=== PATIENT | female | born 1990 ===

== ENCOUNTER 2020-08-23 11:18 | Outpatient (REF) | payer MEDICARE, SELFPAY | END 2020-08-23 11:19 | disposition home or self-care (01) | LOC: HO.LAB 11:18 | PROVIDERS: PCP Internal Medicine; Visit Provider Internal Medicine | DX: Z20.828 Contact with and (suspected) exposure to other viral communicable diseases (principal) | CPT/HCPCS: C9803; U0003 ==

== ENCOUNTER 2020-09-25 12:53 | Outpatient (REF) | payer OTHER, SELFPAY | END 2020-09-25 12:54 | disposition home or self-care (01) | LOC: HO.LAB 12:53 | PROVIDERS: PCP Internal Medicine; Visit Provider Internal Medicine | DX: Z20.828 Contact with and (suspected) exposure to other viral communicable diseases (principal) | CPT/HCPCS: C9803; U0003 ==

== ENCOUNTER 2020-10-30 14:52 | Outpatient (REF) | payer OTHER, SELFPAY | END 2020-10-30 14:53 | disposition home or self-care (01) | LOC: HO.LAB 14:52 | PROVIDERS: Visit Provider Internal Medicine | DX: Z20.822 Contact with and (suspected) exposure to COVID-19 (principal) | CPT/HCPCS: 36415; C9803; U0003 ==

== ENCOUNTER 2021-01-08 12:35 | Outpatient (REF) | payer OTHER, SELFPAY | END 2021-01-08 12:36 | disposition home or self-care (01) | LOC: HO.LAB 12:35 | PROVIDERS: Visit Provider Internal Medicine | DX: Z20.822 Contact with and (suspected) exposure to COVID-19 (principal) | CPT/HCPCS: 36415; C9803; U0003; U0005 ==

== ENCOUNTER 2021-02-17 11:32 | Outpatient (REF) | payer OTHER, SELFPAY ==
[2021-02-17 12:17] LABS: COVID-19 Test Negative (Negative); IDNOW Serial# 55D5AD1C
== END 2021-02-17 11:33 | disposition home or self-care (01) ==
LOC: HO.LAB 11:32
PROVIDERS: Visit Provider Internal Medicine
DX: Z20.822 Contact with and (suspected) exposure to COVID-19 (principal)
CPT/HCPCS: 36415; 87635; C9803

== ENCOUNTER → 2021-02-27 14:34 | Outpatient (BNVA) | payer OTHER, SELFPAY | PROVIDERS: PCP Internal Medicine; Visit Provider Surgery Vascular Surgery | DX: I83.12 Varicose veins of left lower extremity with inflammation (principal) | CPT/HCPCS: 99202 ==

== ENCOUNTER 2021-03-18 13:13 | Outpatient (REF) | payer OTHER, SELFPAY ==
--- NOTE | ~2021-03-18 | US_ITS ---
EXAMINATION: US LOWER EXTREMITY VENOUS ULTRASOUND (REFLUX EXAM), BILATERAL CLINICAL INDICATION: Bilateral lower extremity varicose veins. COMPARISON: None. TECHNIQUE: Color flow triplex imaging and compression Doppler was performed to evaluate both the deep and the superficial systems bilaterally. To evaluate the superficial system, the examination was performed in the upright position. Color flow Doppler ultrasound and compression ultrasound were utilized. In addition, maneuvers were utilized to demonstrate reflux. FINDINGS: 1. DEEP VENOUS ULTRASOUND OF THE RIGHT LOWER EXTREMITY: Common Femoral Vein: Compressible, normal respiratory variation and augmented flow. Femoral Vein: Compressible, normal color flow and augmentation. Popliteal Vein: Compressible, normal augmentation. Deep Reflux: There is no evidence of reflux in the deep system in either the common femoral vein or the popliteal vein. There is no evidence of a Luke's cyst. 2. SUPERFICIAL ULTRASOUND WITH DOPPLER OF RIGHT LOWER EXTREMITY GREAT SAPHENOUS VEIN: Saphenofemoral junction/proximal thigh: 0.8 cm; Greater than 0.9 seconds of reflux. Mid thigh: 0.6 cm; No evidence of reflux. Above knee: 0.5 cm; No evidence of reflux. At knee: 0.5 cm; No evidence of reflux. Below knee: 0.4 cm; No evidence of reflux. Mid calf: 0.3 cm; Greater than 2 seconds of reflux. Ankle: 0.3 cm; Greater than 0.5 seconds of reflux. DUPLICATED GREAT SAPHENOUS VEIN: Medial, 0.3 cm; No reflux. SMALL SAPHENOUS VEIN: Saphenopopliteal junction: 0.3 cm; No evidence of reflux. Mid calf: 0.2 cm; No evidence of reflux. Distal calf: 0.3 cm; No evidence of reflux. VEIN OF GIACOMINI: None Imaged. PERFORATORS: Mid thigh, 0.3 cm; No reflux. Proximal thigh, 0.2 cm; No reflux. VARICOSITIES: Proximal thigh, 0.3 cm; No reflux. Proximal calf, 0.3 cm; No reflux. 3. DEEP VENOUS ULTRASOUND OF THE LEFT LOWER EXTREMITY: Common Femoral Vein: Compressible, normal respiratory variation and augmented flow. Femoral Vein: Compressible, normal color flow and augmentation. Popliteal Vein: Compressible, normal augmentation. Deep Reflux: There is no evidence of reflux in the deep system in either the common femoral vein or the popliteal vein. There is no evidence of a Luke's cyst. 4. SUPERFICIAL ULTRASOUND WITH DOPPLER OF LEFT LOWER EXTREMITY GREAT SAPHENOUS VEIN: Saphenofemoral junction: 0.8 cm; No evidence of reflux. Proximal thigh: 0.7 cm; No evidence of reflux. Mid thigh: 0.4 cm; No evidence of reflux. Above knee: 0.4 cm; No evidence of reflux. At knee: 0.4 cm; No evidence of reflux. Below knee: 0.4 cm; Greater than 0.4 seconds of reflux. Mid calf: 0.2 cm; No evidence of reflux. Ankle: 0.3 cm; No evidence of reflux. DUPLICATED GREAT SAPHENOUS VEIN: Medial, 0.4; No reflux. SMALL SAPHENOUS VEIN: Saphenopopliteal junction: 0.2 cm; No evidence of reflux. Mid calf: 0.2 cm; No evidence of reflux. Distal calf: 0.3 cm; No evidence of reflux. VEIN OF GIACOMINI: None Imaged. PERFORATORS: Medial thigh, 0.3 cm; No reflux. Proximal calf, 0.2 cm; No reflux. Distal calf, 0.2 cm; No reflux. VARICOSITIES: Proximal thigh, 0.3 cm; No reflux. Proximal calf, 0.2 cm; Greater than 2.9 seconds of reflux. US/US venous duplex LE BI IMPRESSION: 1. Right great saphenous venous insufficiency. 2. Left great saphenous venous insufficiency [id number] measuring up to 0.4 seconds. 3. No evidence of small saphenous venous insufficiency. 4. Bilateral lower extremity varicosities. 5. No evidence of DVT or deep reflux.
== END 2021-03-18 13:14 | disposition home or self-care (01) ==
LOC: HO.US 13:13
PROVIDERS: Visit Provider Surgery Vascular Surgery
DX: I83.12 Varicose veins of left lower extremity with inflammation (principal); I83.893 Varicose veins of bilateral lower extremities with other complications
CPT/HCPCS: 93970

== ENCOUNTER → 2021-04-08 14:23 | Outpatient (BNVA) | payer OTHER, SELFPAY | PROVIDERS: PCP Internal Medicine; Visit Provider Surgery Vascular Surgery | DX: I83.12 Varicose veins of left lower extremity with inflammation (principal) | CPT/HCPCS: 99212 ==

== ENCOUNTER 2021-07-02 14:56 | Outpatient (REF) | payer OTHER, SELFPAY | END 2021-07-02 14:57 | disposition home or self-care (01) | LOC: HO.LAB 14:56 | PROVIDERS: PCP Internal Medicine; Visit Provider Internal Medicine | DX: Z20.822 Contact with and (suspected) exposure to COVID-19 (principal) | CPT/HCPCS: C9803; U0003; U0005 ==

== ENCOUNTER 2021-07-15 11:01 | Outpatient (REF) | payer OTHER, SELFPAY | END 2021-07-15 11:02 | disposition home or self-care (01) | LOC: HO.LAB 11:01 | PROVIDERS: PCP Internal Medicine; Visit Provider Internal Medicine | DX: Z20.822 Contact with and (suspected) exposure to COVID-19 (principal) | CPT/HCPCS: C9803; U0003; U0005 ==

== ENCOUNTER 2021-07-30 15:01 | Outpatient (REF) | payer OTHER, SELFPAY ==
[2021-07-30 15:30] LABS: MANUAL DIFF FLAG NO
[2021-07-30 15:54] LABS: Basophils Percent Auto 0.2 % (0-2); Eosinophils Percent Auto 0.7 % (0-4); Hemoglobin 11.3 g/dl (12.0-16.0); Imm Gran Abs Auto 0.01 X10*3/uL (0.00-0.03); Imm Gran Pct Auto 0.2 % (0.0-0.4); Lymphocytes Absolute Auto 1.4 X10*3/uL (1.2-4.9); Lymphocytes Percent Auto 30.8 % (20-40); Mean Corpuscular HGB Conc 31.4 g/dl (31.0-35.0); Mean Corpuscular Hemoglobin 25.4 pg (27.0-33.0); Mean Corpuscular Volume 80.9 fL (80-98); Mean Platelet Volume 10.8 fL (9.4-12.3); Monocytes Absolute Auto 0.5 X10*3/uL (0.1-1.2); Monocytes Percent Auto 10.9 % (2-11); Neutrophils Absolute Auto 2.5 X10*3/uL (2.0-8.3); Neutrophils Percent Auto 57.2 % (45-73); Platelet Count 223 X10*3/uL (160-400); Red Blood Count 4.45 X10*6/uL (4.20-5.50); Red Cell Distribution Width 16.8 % (11.0-16.0); White Blood Count 4.4 X10*3/uL (4.8-10.8)
[2021-07-30 16:20] LABS: Alanine Aminotransferase 11 U/L (0-31); Alkaline Phosphatase 114 U/L (39-117); Anion Gap 10 (12-20); Aspartate Amino Transferase 18 U/L (5-31); Bilirubin Total 0.4 mg/dL (0.0-1.0); Blood Urea Nitrogen 10 mg/dL (9-16); Calcium 9.2 mg/dL (8.4-10.2); Carbon Dioxide 25 mmol/L (22-29); Chloride 106 mmol/L (96-108); Cholesterol 149 mg/dL; Estimated Glomerular Filt Rate > 60; Glucose Random 91 mg/dL (60-115); HDL Cholesterol 41 mg/dL; LDL Cholesterol Calculated 91 mg/dl; Potassium 4.5 mmol/L (3.3-5.1); Sodium 136 mmol/L (135-145); Total Protein 7.4 g/dL (6.5-8.0); Triglycerides 87 mg/dL
[2021-07-30 16:39] LABS: Syphilis Screen Nonreactive (Nonreactive)
[2021-07-30 17:34] LABS: Creatinine Urine 136.22 mg/dL; Protein/Creatinine Ratio, Ur 0.09 (<0.2); Total Protein Urine Random 12 mg/dL (<12)
[2021-07-31 02:04] LABS: CT PCR NOT DETECTED (Not Detect.); NG PCR NOT DETECTED (Not Detect.)
[2021-07-31 08:40] LABS: HIV AB/AG Nonreactive (Nonreactive); HIV Num 1 0.12 S/CO (0.00-0.99)
== END 2021-07-30 15:02 | disposition home or self-care (01) ==
LOC: HO.LAB 15:01
PROVIDERS: PCP Internal Medicine; Visit Provider Internal Medicine
DX: Z11.3 Encounter for screening for infections with a predominantly sexual mode of transmission (principal); Z11.4 Encounter for screening for human immunodeficiency virus [HIV]; M32.10 Systemic lupus erythematosus, organ or system involvement unspecified; R31.9 Hematuria, unspecified
CPT/HCPCS: 80053; 80061; 84156; 85025; 86780; 87086; 87389; 87491; 87591

== ENCOUNTER 2021-08-14 14:40 | Outpatient (REF) | payer OTHER, SELFPAY ==
[2021-08-14 15:07] LABS: COVID-19 Test Negative (Negative)
== END 2021-08-14 14:41 | disposition home or self-care (01) ==
LOC: HO.LAB 14:40
PROVIDERS: PCP Internal Medicine; Visit Provider Internal Medicine
DX: Z20.822 Contact with and (suspected) exposure to COVID-19 (principal)
CPT/HCPCS: 36415; 87635; C9803

== ENCOUNTER 2021-08-14 18:43 | Emergency (ER) | payer OTHER, SELFPAY ==
[2021-08-14 19:03] VITALS: BP 127/63; PULSE 98; RESP 17; TEMP 36.8; O2SAT 100; BMI 29.2
--- NOTE | 2021-08-14 20:01 | ED.GENADULT ---
HPI - General Adult General Chief complaint: Headache Stated complaint: headaches Time Seen by Provider: 08/14/21 19:44 Source: patient Mode of arrival: ambulatory Limitations: no limitations History of Present Illness HPI narrative: 31-year-old female who presents emergency department for evaluation headache, face pain, chills, nausea and back pain. The patient complains of a headache x3 days. She points to her forehead and maxillary sinus areas when asked to localize the pain. She states the pain is a constant, pressure-like pain which is 8/10 at its worst. The pain is worse if she bends over. She states that she has also had a runny nose. She states that she is feeling tired and fatigued. She states that she has had occasional sweats and felt hot and cold at home. She denied cough, chest pain or shortness of breath. She states she had associated nausea with no vomiting. Patient is also complaining back pain. The patient has been vaccinated for COVID-19. She received the [employer] vaccine with her 2nd vaccine given 2 weeks prior pain Related Data Home Medications Medication Instructions Recorded Confirmed acetaminophen 650 mg 650 mg PO Q12H 02/27/21 tablet,extended release (Tylenol 8 Hour) buspirone 15 mg tablet 15 mg PO BID 02/27/21 cetirizine 10 mg tablet (Zyrtec) 10 mg PO DAILY PRN 02/27/21 duloxetine 60 mg capsule,delayed 60 mg PO DAILY 02/27/21 release fluticasone propionate 50 1 spray INTRANASAL DAILY 02/27/21 mcg/actuation nasal spray,suspension hydroxychloroquine 200 mg tablet 200 mg PO DAILY 02/27/21 (Plaquenil) naproxen 500 mg tablet (Naprosyn) 500 mg PO BID 02/27/21 nifedipine 60 mg tablet,extended 60 mg PO DAILY 02/27/21 release olopatadine 0.1 % eye drops 1 drp OPHTHALMIC (EYE) BID 02/27/21 salicylic acid 13.6 % topical ea TOPICAL 02/27/21 liquid triamcinolone acetonide 0.5 % 1 appl TOPICAL BID 02/27/21 topical cream valacyclovir 1 gram tablet 1,000 mg PO TID 02/27/21 (Valtrex) zolpidem 10 mg tablet (Ambien) 10 mg PO BEDTIME PRN 02/27/21 Previous Rx's Medication Instructions Recorded amoxicillin 875 mg-potassium 1 tab PO Q12H 10 Days #20 tab 08/14/21 clavulanate 125 mg tablet (Augmentin) metoclopramide HCl 10 mg tablet 10 mg PO Q6H PRN #14 tab 08/14/21 (Reglan) Allergies Allergy/AdvReac Type Severity Reaction Status Date / Time No Known Allergies Allergy Verified 08/14/21 19:02 Review of Systems Review of Systems: Yes all other systems are reviewed and are negative [facility] Past Medical History [facility] Narrative: Past medical history: As below, patient has lupus and Raynaud's syndrome. Surgical history: None. Social history: The patient denies tobacco , drug and alcohol use. Medical History Arthritis Depression Hx of herpes zoster Surgical History Hx of vaginal surgery Social History Social History Advance Directives: No Advance Directives Information Provided: Yes Patient : No Physical Exam Vital Signs: Vital Signs: Last Vital Signs Temp 98.3 F 08/14/21 19:03 Pulse 98 08/14/21 19:03 Resp 17 08/14/21 19:03 BP 127/63 08/14/21 19:03 Pulse Ox 100 08/14/21 19:03 Body Mass Index 29.2 Const: General: cooperative and no acute distress Orientation/consciousness: oriented to person and oriented to place Limitations: no limitations HENMT: Head: Yes normal to inspection, Yes normocephalic and Yes atraumatic Ears: external ears normal General nose exam: Normal external nose present Face and sinus: Yes sinus tenderness (Bilateral maxillary, moderate) Mouth: Normal oral and palatal mucosa present Throat: Yes posterior oropharynx normal Eyes: General: appearance normal, both eyes and all related structures Pupils: Equal, round and reactive pupils present Neck: Neck: Yes normal visual inspection, Yes no lymphadenopathy, Yes trachea midline and Yes supple Chest: Chest palpation & inspection: normal inspection of the chest and normal palpation of entire chest wall Resp: Effort & Inspection: normal respiratory effort and able to speak in complete sentences Auscultation: clear to auscultation bilaterally Cardio: Rate: regular rate Rhythm: regular rhythm Heart sounds: S1 normal heart sound present, S2 normal heart sound present and no murmurs GI: Inspection: Yes normal to inspection Palpation (GI): Soft to palpation, nontender and no guarding Auscultation: normal bowel sounds : General: Yes no CVA tenderness Back/Spine/Pelvis: Back: no CVA tenderness Skin: General skin exam: no rashes or lesions noted Neuro: General: oriented to person and oriented to place Cranial nerves: Yes CN's II-XII intact bilaterally and Yes Equal, round and reactive pupils present Cognition (Neuro): normal cognition Motor exam (neuro): 5/5 motor strength present throughout Extrem: General: Yes normal to inspection Psych: Appearance: grossly normal Speech and movement: Normal speech and movement present Affect: normal affect Attitude: cooperative Thought process: Normal thought process present Thought content: Normal thought content present Course Course Course Narrative: 31-year-old female who presents emergency department for evaluation of 3 days frontal and facial pain/headache, rhinorrhea, fatigue, sweats, feeling hot and cold and back pain. Vital signs were normal. Examination did reveal maxillary sinus tenderness bilaterally otherwise was unremarkable. COVID-19 test was negative. I did discuss possible false negative COVID testing with the patient. This time however think the patient has acute sinusitis is the cause her pain. Her headache was treated with Reglan 10 mg orally, Benadryl 50 mg orally and Tylenol 975 mg orally. Patient was started on this migraine regimen and also started on Augmentin 875 twice a day for 10 days. She was given her 1st dose of Augmentin here in the emergency department. Patient was discharged home with printed and verbal instructions. Discharge Plan Discharge Clinical Impression: Sinusitis Patient Disposition: Home, Self-Care Instructions: Sinusitis (ED), Migraine Headache (ED) Additional Instructions: Presentation consistent with bilateral maxillary sinusitis Take Augmentin 875/125, 1 pill every 12 hours for 10 days. Your symptoms are consistent with a a sinus infection which is causing a migraine like headache I want you to take the following 3 medications together every 6 hours as needed for headache, nausea or vomiting. Reglan (metoclopramide) in 10 mg, 1 pill Benadryl 25 mg, 2 pills Excedrin migraine, 2 pills. After you take these medications, lie down in a dark quiet room and try to fall asleep. These medications will make you sleepy, do not drive or work after taking these medications. Follow-up with your doctor in 2 days. Please return to the emergency department if your symptoms get worse or if you develop any symptoms that are concerning to you. Prescriptions: New metoclopramide HCl [Reglan] 10 mg tablet 10 mg PO Q6H PRN (Reason: nausea and vomiting) Qty: 14 RF: 0 amoxicillin-pot clavulanate [Augmentin] 875-125 mg tablet 1 tab PO Q12H 10 Days Qty: 20 RF: 0
[2021-08-14] MEDS: Amoxicillin/Potassium Clav 875 MG TABLET PO (20:15)
[2021-08-14] MEDS: Acetaminophen 325 MG TABLET 975 MG PO (20:15)
[2021-08-14] MEDS: diphenhydrAMINE HCL 50 MG/ML VIAL IVPUSH (20:19)
[2021-08-14] MEDS: Metoclopramide HCl 10 MG/2 ML VIAL IVPUSH (20:19)
== END 2021-08-14 20:29 | disposition home or self-care (01) ==
PROVIDERS: Emergency Provider Emergency Medicine Emergency Medical Services; PCP Internal Medicine
DX: J32.9 Chronic sinusitis, unspecified (principal); R51.9 Headache, unspecified; Z79.899 Other long term (current) drug therapy
CPT/HCPCS: 96374; 96375; 99283; 99284; J1200; J2765

== ENCOUNTER 2021-08-17 17:15 | Emergency (ER) | payer OTHER, SELFPAY ==
[2021-08-17 17:19] VITALS: BP 145/91; PULSE 120; RESP 18; TEMP 36.9; O2SAT 99; BMI 29.2
[2021-08-17 18:33] LABS: Influenza A PCR NEGATIVE (Negative); Influenza B PCR NEGATIVE (Negative); Resp Syncy Virus RNA Qual PCR NEGATIVE (Negative); SARS COV2 PCR INHOUSE NEGATIVE (Negative)
[2021-08-17 20:31] VITALS: BP 128/85; PULSE 104; RESP 18; TEMP 37.6; O2SAT 97
--- NOTE | 2021-08-17 21:34 | ED_ITS ---
HPI - Back Pain/Injury General Chief Complaint: Back Pain/Injury Stated Complaint: body aches Time Seen by Provider: 08/17/21 21:34 Source: patient Mode of arrival: ambulatory Limitations: no limitations History of Present Illness HPI Narrative: Patient complaining of upper back pain headache for the last few weeks off and on most of fibromyalgia patient does have multiple complaints history of anxiety and depression Related Data Home Medications Medication Instructions Recorded Confirmed acetaminophen 650 mg 650 mg PO Q12H 02/27/21 tablet,extended release (Tylenol 8 Hour) buspirone 15 mg tablet 15 mg PO BID 02/27/21 cetirizine 10 mg tablet (Zyrtec) 10 mg PO DAILY PRN 02/27/21 duloxetine 60 mg capsule,delayed 60 mg PO DAILY 02/27/21 release fluticasone propionate 50 1 spray INTRANASAL DAILY 02/27/21 mcg/actuation nasal spray,suspension hydroxychloroquine 200 mg tablet 200 mg PO DAILY 02/27/21 (Plaquenil) naproxen 500 mg tablet (Naprosyn) 500 mg PO BID 02/27/21 nifedipine 60 mg tablet,extended 60 mg PO DAILY 02/27/21 release olopatadine 0.1 % eye drops 1 drp OPHTHALMIC (EYE) BID 02/27/21 salicylic acid 13.6 % topical ea TOPICAL 02/27/21 liquid triamcinolone acetonide 0.5 % 1 appl TOPICAL BID 02/27/21 topical cream valacyclovir 1 gram tablet 1,000 mg PO TID 02/27/21 (Valtrex) zolpidem 10 mg tablet (Ambien) 10 mg PO BEDTIME PRN 02/27/21 Previous Rx's Medication Instructions Recorded amoxicillin 875 mg-potassium 1 tab PO Q12H 10 Days #20 tab 08/14/21 clavulanate 125 mg tablet (Augmentin) metoclopramide HCl 10 mg tablet 10 mg PO Q6H PRN #14 tab 08/14/21 (Reglan) [id number] 1 cap PO Q6H PRN #20 cap 08/17/21 50 mg-300 mg-40 mg capsule (Fioricet) tramadol 50 mg tablet 50 mg PO Q6H PRN #20 tab 08/17/21 Allergies Allergy/AdvReac Type Severity Reaction Status Date / Time No Known Allergies Allergy Verified 08/17/21 21:28 Review of Systems Review of Systems: Yes all other systems are reviewed and are negative [facility] Past Medical History Medical History Arthritis Depression Hx of herpes zoster Surgical History Hx of vaginal surgery Social History Social History Advance Directives: No Advance Directives Information Provided: No Patient : No Physical Exam Vital Signs: Vital Signs: Last Vital Signs Temp 99.7 F 08/17/21 20:31 Pulse 104 H 08/17/21 20:31 Resp 18 08/17/21 20:31 BP 128/85 08/17/21 20:31 Pulse Ox 97 08/17/21 20:31 Body Mass Index 29.2 Appearance: Alert. Oriented X3. No acute distress. Eyes: No pallor or icterus ENT: Pharynx normal. Oral Mucosa moist Neck: Normal inspection. Neck supple. Diffuse muscular tenderness and upper back area CVS: Normal heart rate and rhythm. Pulses normal. Respiratory: No respiratory distress. Equal air entry bilateral, no wheezing/rales/rhonchi Abdomen: Soft and nontender. Bowel sounds are present, no mass palpable, no CVA tenderness Skin: Skin warm and dry. Normal skin color. Normal skin turgor. Extremities: No lower extremity edema. No calf tenderness Neuro: Oriented X 3. No motor deficit. No sensory deficit.No cerebellar signs , cranial nerves II-XII intact MDM - Back Pain/Injury MDM Narrative Medical decision making narrative: Patient with multiple complaints likely fibromyalgia with anxiety and depression discharge patient on pain medication Lab Data Attestation: I reviewed the patient's lab results. Labs: Lab Results 08/17/21 Range/Units 17:31 Influenza Type A (PCR) NEGATIVE (Negative) Influenza Type B (PCR) NEGATIVE (Negative) RSV RNA Qual (PCR) NEGATIVE (Negative) SARS-CoV-2 RNA (RT-PCR) NEGATIVE (Negative) Discharge Plan Discharge Clinical Impression: Musculoskeletal back pain, Migraine Patient Disposition: Home, Self-Care Instructions: Migraine Headache (ED), Fibromyalgia (ED) Additional Instructions: Rest at home Take medication for pain as prescribed You might have fibromyalgia Follow-up with PCP as needed Prescriptions: New tramadol 50 mg tablet 50 mg PO Q6H PRN (Reason: pain) Qty: 20 RF: 0 [id number]-vsdj [Fioricet] 50-300-40 mg capsule 1 cap PO Q6H PRN (Reason: headache) Qty: 20 RF: 0 No Action metoclopramide HCl [Reglan] 10 mg tablet 10 mg PO Q6H PRN (Reason: nausea and vomiting) Qty: 14 RF: 0 amoxicillin-pot clavulanate [Augmentin] 875-125 mg tablet 1 tab PO Q12H 10 Days Qty: 20 RF: 0 Interventions: ED Discharge Assessment Last Done: 08/17/21 22:23 Discharge Date/Time: 08/17/21 22:23
[2021-08-17] MEDS: traMADoL HCL 50 MG TABLET PO (22:19)
[2021-08-17] MEDS: Butalb/Acetamin/Caff 50/325/40 TABLET 1 TAB PO (22:19)
== END 2021-08-17 22:23 | disposition home or self-care (01) ==
PROVIDERS: Emergency Provider Internal Medicine
DX: M79.10 Myalgia, unspecified site (principal); G43.909 Migraine, unspecified, not intractable, without status migrainosus; Z20.822 Contact with and (suspected) exposure to COVID-19
CPT/HCPCS: 0241U; 36415; 99284

== ENCOUNTER 2021-09-29 13:41 | Outpatient (REF) | payer OTHER, SELFPAY ==
[2021-09-29 15:14] LABS: COVID-19 Test Negative (Negative); IDNOW Serial# 16C4AD1C
== END 2021-09-29 13:42 | disposition home or self-care (01) ==
LOC: HO.LAB 13:41
PROVIDERS: Visit Provider Internal Medicine
DX: Z20.822 Contact with and (suspected) exposure to COVID-19 (principal)
CPT/HCPCS: 36415; 87635; C9803

== ENCOUNTER 2021-10-14 08:57 | Outpatient (REF) | payer OTHER, SELFPAY | END 2021-10-14 08:58 | disposition home or self-care (01) | LOC: HO.LAB 08:57 | PROVIDERS: Visit Provider Internal Medicine | DX: Z20.822 Contact with and (suspected) exposure to COVID-19 (principal) | CPT/HCPCS: C9803; U0003; U0005 ==

== ENCOUNTER 2022-01-22 12:34 | Outpatient (REF) | payer OTHER, SELFPAY ==
[2022-01-22 13:04] LABS: COVID-19 Test Negative (Negative)
== END 2022-01-22 12:35 | disposition home or self-care (01) ==
LOC: HO.LAB 12:34
PROVIDERS: Visit Provider Internal Medicine
DX: Z20.822 Contact with and (suspected) exposure to COVID-19 (principal)
CPT/HCPCS: 87635; C9803

== ENCOUNTER 2023-03-03 15:37 | Outpatient (REF) | payer OTHER, SELFPAY ==
[2023-03-03 15:58] LABS: MANUAL DIFF FLAG NO
[2023-03-03 16:09] LABS: Basophils Percent Auto 0.3 % (0-2); Eosinophils Percent Auto 0.6 % (0-4); Hematocrit 37.2 % (37.0-47.0); Hemoglobin 11.4 g/dl (12.0-16.0); Lymphocytes Absolute Auto 1.3 X10*3/uL (1.2-4.9); Lymphocytes Percent Auto 35.4 % (20-40); Mean Corpuscular HGB Conc 30.6 g/dl (31.0-35.0); Mean Corpuscular Hemoglobin 24.6 pg (27.0-33.0); Mean Corpuscular Volume 80.3 fL (80.0-98.0); Mean Platelet Volume 9.9 fL (9.4-12.3); Monocytes Absolute Auto 0.3 X10*3/uL (0.1-1.2); Monocytes Percent Auto 9.5 % (2-11); Neutrophils Percent Auto 54.2 % (45-73); Platelet Count 254 X10*3/uL (160-400); Red Blood Count 4.63 X10*6/uL (4.20-5.50); White Blood Count 3.6 X10*3/uL (4.8-10.8)
[2023-03-03 16:47] LABS: Albumin Level 4.1 g/dL (3.5-5.0); C Reactive Protein 0.25 mg/dL (< or = 0.50)
[2023-03-03 16:56] LABS: Alanine Aminotransferase 19 U/L (0-31); Albumin Level 4.2 g/dL (3.5-5.0); Alkaline Phosphatase 111 U/L (39-117); Anion Gap 11 (12-20); Aspartate Amino Transferase 28 U/L (5-31); Bilirubin Total 0.7 mg/dL (0.0-1.0); Blood Urea Nitrogen 9 mg/dL (9-16); Calcium 9.3 mg/dL (8.4-10.2); Carbon Dioxide 24 mmol/L (22-29); Chloride 110 mmol/L (96-108); Cholesterol 147 mg/dL; Estimated Glomerular Filt Rate > 60; Glucose Random 83 mg/dL (60-115); HDL Cholesterol 46 mg/dL; LDL Cholesterol Calculated 91 mg/dl; Potassium 4.3 mmol/L (3.3-5.1); Sodium 141 mmol/L (135-145); Total Protein 7.6 g/dL (6.5-8.0); Triglycerides 51 mg/dL
[2023-03-03 17:12] LABS: Thyroid Stimulating Hormone 0.97 uIU/mL (0.32-4.0)
[2023-03-03 17:28] LABS: Erythrocyte Sedimentation Rate 25 MM/HR (0-20)
[2023-03-03 17:31] LABS: Appearance Urine Clear; Color Urine Yellow; Glucose Urine UA Negative (Negative); Leukocyte Esterase Urine Negative (Negative); Nitrite Urine Negative (Negative); Urine Blood Negative (Negative); Urine Ketones 15 mg/dL (Negative); Urine Protein Trace mg/dL (Neg-Trace)
[2023-03-03 17:34] LABS: Bacteria Urine 1+ (None Seen); Hyaline Casts Urine 0-2 /LPF (0-2); RBC Urine 0-2 /HPF (0-2); WBC Urine 0-5 /HPF (0-5)
[2023-03-03 18:13] LABS: Creatinine Urine 166.26 mg/dL; Microalbum/Creatinine Ratio Ur 13.2 ug/mg cr
[2023-03-06 02:38] LABS: Complement C3 126 mg/dL (83-193)
[2023-03-07 07:23] LABS: Anti DNA DS Antibody 1 IU/mL
== END 2023-03-03 15:38 | disposition home or self-care (01) ==
LOC: HO.LAB 15:37
PROVIDERS: Absent Provider Internal Medicine; PCP Internal Medicine; Visit Provider Internal Medicine
DX: Z79.899 Other long term (current) drug therapy (principal)
CPT/HCPCS: 36415; 80053; 80061; 81001; 82040; 82043; 84443; 85025; 85652; 86140; 86160; 86225

== ENCOUNTER 2023-05-19 15:00 | Outpatient (RCR) | payer OTHER, SELFPAY ==
--- NOTE | 2023-04-30 15:19 | MHC.PT.EP ---
[facility] [place] Office [place] [facility] [place] Office [address] Nelli Alves [address] [phone] F: [phone] F: [phone] F: [phone] F: [phone] Physical Therapy Plan of Care Date of Evaluation: Date of Surgery: Diagnosis: Back and joint pain (MD Dx) Assessment: Patient is a pleasant 33 y.o. female who is referred to PT by Dr Fabiana Mercer MD, with Dx of back and joint pain (secondary to lupus). Patient impairments include chronic pain, limited ROM, weakness, poor posture. Patient current functional limitations are lifting, prolonged sitting, standing, walking, stair use (does not have at home). Patient will benefit from skilled PT to address aforementioned impairments and functional limitations to to preserve current capabilities and prevent deterioration of condition. Frequency and Duration: The patient will be seen 1-2x/week for 4 weeks Short Term Goals: 2 weeks Patient demonstrates consistency and independence with HEP to self manage chronic symptoms. Manufacturer Representative Goals: 4 weeks Patient presents with increased bilateral hip flexion 4+/5 to be able to perform sit to stand without pain/difficulty. Patient presents with increased bilateral knee extension 4+/5 to be able to use reciprocal stairs in community. Treatment Plan: Modalities to reduce pain, spasms and effusion. Manual therapy to restore motion and function. Therapeutic exercise to improve strength and flexibility. Neuromuscular re-education for posture and balance. Therapeutic activities to return to functional activities of daily living. Electronically signed by: Дмитрий Piedra, PT, DPT Please sign and return to therapist. Thank you for your referral.
--- NOTE | 2023-07-27 12:22 | MHC.PT.DC ---
[facility] [place] [facility] [place] [facility] [place] [facility] [address] Nelli Alves [address] [phone] F: [phone] F: [phone] F: [phone] F: [phone] Physical Therapy Discharge Report Diagnosis: Back and joint pain ( Dx) Date of Surgery: Date of Evaluation: 04/29/23 Date of Discharge: 07/27/23 Treatments to Date: 3 Cancellations to Date: 4 No Shows to Date: 0 Discharge Status: Independent with HEP Patient Elected to Stop Discharge Summary: Patient was seen for 3 PT sessions, cancelled 4 and did not make any more [facility]UP appointments after cancelled visits. She has an independent HEP. Difficulty determining effectivness of PT interventions on patient conditioin due to limited visits. She is therefore discharged from PT at this time. Electronically signed by: Дмитрий Piedra, PT, DPT Please sign and return to therapist. Thank you for your referral.
== END 2023-07-27 12:22 | disposition home or self-care (01) ==
LOC: HO.PT 15:00
PROVIDERS: PCP Internal Medicine; Visit Provider Internal Medicine
DX: M54.50 Low back pain, unspecified (principal)
CPT/HCPCS: 97110; 97140; 97162; 97535

== ENCOUNTER 2023-08-04 13:36 | Outpatient (REF) | payer OTHER, SELFPAY ==
--- NOTE | ~2023-08-04 | US_ITS ---
EXAMINATION: US VENOUS ULTRASOUND WITH DOPPLER LOWER EXTREMITY, RIGHT CLINICAL INFORMATION: Right lower extremity edema COMPARISON: Bilateral lower extremity DVT study 03/18/2021 TECHNIQUE: Ultrasound of the deep veins is performed from the hip to the calf with compression sonography and color and pulse Doppler assessment. Spectral analysis with color-flow imaging is performed. FINDINGS: There is normal venous compression and respiratory variation and augmented flow. The visualized common femoral vein, superficial femoral vein, profunda femoral vein, popliteal vein, and the trifurcation region shows no evidence of deep venous thrombosis. There is no significant popliteal fossa cyst. The contralateral left common femoral vein appears normal. If the patient's symptoms persist, followup ultrasound in 5 days 7 days might be of value to exclude proximal propagation from a non-visualized calf vein. US/US venous duplex LE RT IMPRESSION: No DVT demonstrated in the right lower extremity.
[2023-08-04 13:59] LABS: MANUAL DIFF FLAG NO
[2023-08-04 14:20] LABS: Basophils Percent Auto 0.2 % (0-2); Eosinophils Percent Auto 0.8 % (0-4); Hematocrit 34.2 % (37.0-47.0); Hemoglobin 10.7 g/dl (12.0-16.0); Imm Gran Abs Auto 0.01 X10*3/uL (0.00-0.03); Imm Gran Pct Auto 0.2 % (0.0-0.4); Lymphocytes Absolute Auto 1.4 X10*3/uL (1.2-4.9); Lymphocytes Percent Auto 27.5 % (20-40); Mean Corpuscular HGB Conc 31.3 g/dl (31.0-35.0); Mean Corpuscular Hemoglobin 24.8 pg (27.0-33.0); Mean Corpuscular Volume 79.2 fL (80.0-98.0); Mean Platelet Volume 9.3 fL (9.4-12.3); Monocytes Absolute Auto 0.7 X10*3/uL (0.1-1.2); Neutrophils Absolute Auto 2.9 x10*3/uL (2.0-8.3); Neutrophils Percent Auto 58.3 % (45-73); Platelet Count 288 X10*3/uL (160-400); Red Blood Count 4.32 X10*6/uL (4.20-5.50); Red Cell Distribution Width 16.9 % (11.0-16.0)
[2023-08-04 14:47] LABS: D Dimer High Sensitivity < 150 NG/ML
[2023-08-04 15:30] LABS: Creatinine Urine 99.85 mg/dL; Protein/Creatinine Ratio, Ur 0.09 (<0.2); Total Protein Urine Random 9 mg/dL (<12)
[2023-08-04 15:34] LABS: Alanine Aminotransferase 22 U/L (0-31); Albumin Level 3.8 g/dL (3.5-5.0); Alkaline Phosphatase 131 U/L (39-117); Anion Gap 11 (12-20); Aspartate Amino Transferase 33 U/L (5-31); Bilirubin Total 0.3 mg/dL (0.0-1.0); Blood Urea Nitrogen 12 mg/dL (9-16); Calcium 9.1 mg/dL (8.4-10.2); Carbon Dioxide 22 mmol/L (22-29); Chloride 110 mmol/L (96-108); Cholesterol 163 mg/dL (<200); Estimated Glomerular Filt Rate > 60; Glucose Random 80 mg/dL (60-115); HDL Cholesterol 50 mg/dL (>40); LDL Cholesterol Calculated 92 mg/dL (<100); Potassium 4.3 mmol/L (3.3-5.1); Sodium 139 mmol/L (135-145); Total Protein 7.6 g/dL (6.5-8.0); Triglycerides 108 mg/dL (<150)
== END 2023-08-04 13:37 | disposition home or self-care (01) ==
LOC: HO.XRAY 13:36
PROVIDERS: PCP Internal Medicine; Visit Provider Internal Medicine
DX: R60.0 Localized edema (principal); M32.10 Systemic lupus erythematosus, organ or system involvement unspecified; L24.5 Irritant contact dermatitis due to other chemical products; E78.00 Pure hypercholesterolemia, unspecified
CPT/HCPCS: 36415; 80053; 80061; 82570; 84156; 85025; 85379; 93971

== ENCOUNTER 2024-03-31 11:37 | Emergency (ER) | payer OTHER, SELFPAY ==
--- NOTE | ~2024-03-31 | CT_ITS ---
EXAMINATION: CT ABDOMEN AND PELVIS WITHOUT CONTRAST CLINICAL INFORMATION: Hematuria COMPARISON: CT abdomen and pelvis 07/04/2015 TECHNIQUE: Multidetector volumetric imaging was performed from the superior aspect of the liver through the pubic symphysis. Sagittal and coronal reformatted images were obtained on the technologist's workstation. This CT examination was performed using dose optimization techniques as appropriate, variously including the following: *Automated exposure control *Adjustment of mA and/or kV according to patient size (this includes techniques or standardized protocols for targeted exams where dose is matched to indication/reason for exam; i.e. extremities or head) *Use of iterative reconstruction technique DLP: 764 mGy-cm FINDINGS: LUNG BASES: Unremarkable. ABDOMINAL AND PELVIC WALL: Tiny fat-containing umbilical hernia. LIVER AND BILIARY TREE: Hypoattenuating hepatic parenchyma compatible with hepatic steatosis. GALLBLADDER: Unremarkable. PANCREAS: Unremarkable. SPLEEN: Unremarkable. ADRENAL GLANDS: Unremarkable. KIDNEYS AND URETERS: Punctate nonobstructing bilateral renal stones similar to prior. No hydronephrosis or obstructive ureterolithiasis. GASTROINTESTINAL TRACT: Small hiatal hernia. Colonic diverticulosis without evidence of diverticulitis. Appendicoliths in an otherwise normal appendix. VASCULAR: Unremarkable. LYMPH NODES/PERITONEUM: Mildly enlarged bilateral iliac chain lymph nodes measuring up to 1.3 cm short axis in the right external iliac chain, 2:64, previously 1.2 cm similar to 2015. FREE FLUID: None. BLADDER: Unremarkable. PELVIC VISCERA: Unremarkable. OSSEOUS STRUCTURES: Unremarkable. CT/CT abdomen pelvis wo IV con IMPRESSION: 1. Punctate nonobstructing bilateral renal stones similar to prior. No hydronephrosis or obstructive ureterolithiasis. 2. Mildly enlarged bilateral iliac chain lymph nodes measuring up to 1.3 cm short axis in the right external iliac chain similar to 2015 though may reflect some underlying chronic low-grade lymphoproliferative process, consider correlation with tissue sampling of the dominant external iliac chain node if warranted clinically. 3. Hepatic steatosis.
[2024-03-31 11:50] VITALS: BP 135/76; PULSE 96; RESP 16; TEMP 36.9; O2SAT 100; BMI 36.3
--- NOTE | 2024-03-31 11:53 | ED.FEMALEGU ---
HPI - Female Genitourinary General Chief complaint: Urogenital-Female Stated complaint: KidneyStones Time Seen by Provider: 03/31/24 14:47 Source: patient Mode of arrival: ambulatory Limitations: no limitations History of Present Illness ED Provider: ludmila KITCHEN Narrative: Patient is a 34-year-old female with history of kidney stones presenting to the ED with complaint of hematuria and lower abdominal pain. States that she had her period last week, which typically lasts 4-5 days. After her period ended, she continued to notice pink on the toilet paper after urinating. She initially attributed it to her period. Denies any vaginal bleeding otherwise. Today noted blood in the toilet after urinating and complains of mild lower back pain radiating around to lower abdomen. Denies flank pain, denies fevers. Denies any nausea or vomiting. Denies concern for STIs or abnormal vaginal discharge. MD elicited complaint: other (hematuria) Pertinent past history: other (kidney stones) Onset (ago): day(s) Location of symptoms: suprapubic Severity: mild Quality of pain: aching Vaginal discharge: none Vaginal bleeding: none Urinary symptoms: Hematuria Associated symptoms: denies other symptoms Treatment prior to arrival: none Sexual activity: Yes Patient : No Related Data Home Medications ?Medication ?Instructions ?Recorded ?Confirmed acetaminophen 650 mg 650 mg PO Q12H 02/27/21 tablet,extended release (Tylenol 8 Hour) buspirone 15 mg tablet 15 mg PO BID 02/27/21 cetirizine 10 mg tablet (Zyrtec) 10 mg PO DAILY PRN 02/27/21 duloxetine 60 mg capsule,delayed 60 mg PO DAILY 02/27/21 release fluticasone propionate 50 1 spray intranasal DAILY 02/27/21 mcg/actuation nasal spray,suspension hydroxychloroquine 200 mg tablet 200 mg PO DAILY 02/27/21 (Plaquenil) naproxen 500 mg tablet (Naprosyn) 500 mg PO BID 02/27/21 nifedipine 60 mg tablet,extended 60 mg PO DAILY 02/27/21 release olopatadine 0.1 % eye drops 1 drp ophthalmic (eye) BID 02/27/21 salicylic acid 13.6 % topical ea topical 02/27/21 liquid triamcinolone acetonide 0.5 % 1 appl topical BID 05/13/21 topical cream valacyclovir 1 gram tablet 1,000 mg PO TID 02/27/21 (Valtrex) zolpidem 10 mg tablet (Ambien) 10 mg PO BEDTIME PRN 02/27/21 Previous Rx's ?Medication ?Instructions ?Recorded amoxicillin 875 mg-potassium 1 tab PO Q12H 10 days #20 tabs 08/14/21 clavulanate 125 mg tablet (Augmentin) metoclopramide HCl 10 mg tablet 10 mg PO Q6H PRN nausea and 08/14/21 (Reglan) vomiting #14 tabs vbsqmzoxty-leppbfdccdkyb-eubxaquf 1 cap PO Q6H PRN headache #20 caps 08/17/21 50 mg-300 mg-40 mg capsule (Fioricet) tramadol 50 mg tablet 50 mg PO Q6H PRN pain #20 tabs 08/17/21 naproxen 500 mg tablet 500 mg PO Q8-12H PRN pain (scale 03/31/24 score 4-6) #20 tabs prednisone 20 mg tablet 40 mg (2 x 20 mg) PO DAILY 5 days 03/31/24 #10 tabs Allergies Allergy/AdvReac Type Severity Reaction Status Date / Time No Known Allergies Allergy Verified 03/31/24 11:54 Review of Systems Review of Systems: As per HPI. Yes all other systems are reviewed and are negative Constitutional: Constitutional: Reports as per HPI [facility] Past Medical History Medical History Arthritis Depression Hx of herpes zoster Surgical History Hx of vaginal surgery Social History Social History Advance Directives: No Advance Directives Information Provided: No Patient : No Physical Exam Vital Signs: Vital Signs: Last Vital Signs Temp 97.9 F 03/31/24 19:53 Pulse 90 03/31/24 19:53 Resp 18 03/31/24 19:53 BP 138/76 03/31/24 19:53 Pulse Ox 99 03/31/24 19:53 O2 Del Method Room Air 03/31/24 19:53 BMI result Body Mass Index 36.3 Vital signs have been reviewed and appear to be correct. Blood pressure normal. Heart rate normal. Respiratory rate normal. Temperature normal. Oxygen saturation normal. Const: General: cooperative, healthy appearing and no acute distress Orientation/consciousness: oriented to person, oriented to place, oriented to time and patient oriented x3 Limitations: no limitations HEENT: Head: Yes normocephalic and Yes atraumatic Ears: external ears normal General nose exam: Normal external nose present Face and sinus: Yes face symmetric Mouth: oropharynx normal and moist mucous membranes Throat: Yes uvula midline Eyes: Pupils: Equal, round and reactive pupils present Neck: Neck: Yes normal visual inspection and Yes supple Resp: Effort & Inspection: normal respiratory effort and able to speak in complete sentences Auscultation: clear to auscultation bilaterally Cardio: Rate: regular rate Rhythm: regular rhythm Heart sounds: S1 normal heart sound present and S2 normal heart sound present GI: Palpation (GI): Soft to palpation, Tenderness to palpation present (GI) suprapubicly, no guarding and No Rebound tenderness present Auscultation: normoactive bowel sounds : General: Yes no CVA tenderness Back/Spine/Pelvis: Back: no CVA tenderness Thoracic/Lumbar Spine: paraspinal muscle tenderness bilaterally in the upper lumbar Skin: General skin exam: elasticity normal and turgor normal Neuro: General: oriented to person, oriented to place, oriented to time, patient oriented x3, moves all extremities, no focal motor deficits and CN's II-XI intact bilaterally Cranial nerves: Yes Equal, round and reactive pupils present Cognition (Neuro): normal cognition Extrem: General: Yes full ROM, Yes no pedal edema and Yes no calf tenderness Psych: Mental Status: mental status grossly normal Affect: normal affect Thought process: Normal thought process present Course Course Course Narrative: This is an RME performed by Jed Pavon CNP: Additional HPI, ROS, PE not included below will be deferred to primary provider. Patient is a 34 old female who presents emergency department for evaluation. She reports 5 days of hematuria, urinary frequency diffuse abdominal cramping, intermittent lower back pain. Denies this to be vaginal bleeding or rectal bleeding, blood is noted in the toilet and toilet tissue after wiping. Reports a history of kidney stones which have not required procedures in the past. She reports LMP 03/20 - 03/25 Plan: Labs, urinalysis, hCG Reevaluation(s) Reevaluation #1: I received patient in sign-out from Azra MATUTE pending CT scan. > I reviewed all investigations prior to my assumption of care. She does not have leukocytosis or left shift. Chronic, stable anemia when compared to priors. H&H 36.1. No concern for acute bleeding. Chemistry without acute electrolyte abnormality requiring intervention. Urine with small amount of leukocyte esterase, 6-10 WBCs, 3-5 squamous epithelial cells, 0-2 urine RBCs and no bacteria. There is no concern for urinary tract infection. Urine is also negative for blood and pregnnacy. CT scan abdomen/pelvis shows punctate, nonobstructing bilateral renal stones similar to priors without evidence of hydronephrosis or obstructive ureterolithiasis. It is possible that patient is passing these punctate stones. She only complains of mild discomfort at present which has been treated appropriately with Toradol. I discussed these findings with patient. Will send prednisone and naproxen to pharmacy for treatment. Advised to increase oral hydration. > CT scan also showing incidental findings of mildly enlarged bilateral iliac chain lymph nodes measuring up to 1.3 cm short axis in the right external iliac chain similar to 2015 though may reflect some underlying chronic low-grade lymphoproliferative process. Recommending correlation with tissue sampling. I did discuss these results with patient. I am unable to palpate any iliac chain lymph nodes. I advised that she follow-up with a general surgeon regarding these findings and she verbalizes understanding. Referral given. > at this time I feel patient is safe for discharge home and she is agreeable with this. - Elizabeth Bianchi PA-C Time: 20:17 Medications Administered Discontinued Medications Generic Name Dose Route Start Last Admin Trade Name Dion PRN Reason Stop Dose Admin Ketorolac Tromethamine 30 mg 03/31/24 19:40 03/31/24 19:51 Ketorolac Tromethamine 30 Mg/Ml Vial IM 03/31/24 19:41 30 mg ONCE ONE Administration Medical Decision Making Medical Decision Making MDM Narrative: Patient is a 34-year-old female with history of kidney stones presenting to the ED with complaint of hematuria and lower abdominal pain. On exam patient is awake, A+Ox3, VS WNL, afebrile, normal neurological exam without focal deficits, physical exam findings as above. Given reported symptoms and physical exam findings, initial differential includes UTI, renal or ureteral calculi, menstruation. Labs notable for no leukocytosis, slight anemia, no evidence of DELMIS. Urinalysis notable for 1+ leukocytes, 6-10 WBCs, negative . Patient signed out to ARRON Johnson pending CT A/P Differential Diagnosis Differential Diagnoses: The differential diagnosis associated with the presentation includes As per [facility] Admission/Observation Consideration of admission/observation: Escalation of care including admission/observation considered Patient would have been admitted to the hospital had their work up had any findings where hospital admission was appropriate and their clinical presentation warranted hospital admission. Lab Data [facility] Lab Attestation statement: I reviewed the patient's lab results. As per [facility] 03/31/24 12:29 03/31/24 12:29 Labs: Lab Results 03/31/24 03/31/24 Range/Units 12:29 12:30 WBC 3.6 L (4.8-10.8) X10*3/uL RBC 4.64 (4.20-5.50) X10*6/uL Hgb 11.0 L (12.0-16.0) g/dl Hct 36.1 L (37.0-47.0) % MCV 77.8 L (80.0-98.0) fL MCH 23.7 L (27.0-33.0) pg MCHC 30.5 L (31.0-35.0) g/dl RDW 18.1 H (11.0-16.0) % Plt Count 273 (160-400) X10*3/uL MPV 10.3 (9.4-12.3) fL Immature Gran % (Auto) 0.3 (0.0-0.4) % Neut % (Auto) 52.0 (45-73) % Lymph % (Auto) 33.9 (20-40) % [place] % (Auto) 12.1 H (2-11) % Eos % (Auto) 1.1 (0-4) % Baso % (Auto) 0.6 (0-2) % Lymph # (Auto) 1.2 (1.2-4.9) X10*3/uL [place] # (Auto) 0.4 (0.1-1.2) X10*3/uL Eos # (Auto) 0.0 (0.0-0.4) X10*3/uL Baso # (Auto) 0.0 (0.0-0.2) X10*3/uL Abs Immat Gran (auto) 0.01 (0.00-0.03) X10*3/uL Absolute Neuts (auto) 1.9 L (2.0-8.3) x10*3/uL Absolute Nucleated RBC 0.000 (0.0-0.012) X10*3/uL Nucleated RBC % (auto) 0.0 (0.0-0.2) /100WBC Sodium 141 (135-145) mmol/L Potassium 4.4 (3.3-5.1) mmol/L Chloride 110 H (96-108) mmol/L Carbon Dioxide 26 (22-29) mmol/L Anion Gap 9 L (12-20) BUN 7 L (9-16) mg/dL Creatinine 0.77 (0.5-1.4) mg/dL Estim Creat Clear Calc 119.9 Estimated GFR > 60 Random Glucose 102 (60-115) mg/dL Calcium 9.6 (8.4-10.2) mg/dL Total Bilirubin 0.3 (0.0-1.0) mg/dL AST 33 H (5-31) U/L ALT 23 (0-31) U/L Alkaline Phosphatase 109 (39-117) U/L Total Protein 7.8 (6.5-8.0) g/dL Albumin 4.0 (3.5-5.0) g/dL Urine Color Yellow Urine Appearance Clear Urine pH 5.5 (5.0-9.0) Ur Specific [place] 1.020 (1.005-1.025) Urine Protein 30 (1+) H (Neg-Trace) mg/dL Urine Glucose (UA) Negative (Negative) mg/dL Urine Ketones Negative (Negative) mg/dL Urine Blood Negative (Negative) Urine Nitrite Negative (Negative) Ur Leukocyte Esterase Small (1+) H (Negative) Urine RBC 0-2 (0-2) /HPF Urine WBC 6-10 H (0-5) /HPF Ur Squamous Epith Cells 3-5 (0-2) /HPF Urine Bacteria None Seen (None Seen) Hyaline Casts 0-2 (0-2) /LPF Urine Test NEGATIVE (NEGATIVE) External Record Review External record reviewed: Inpatient record, Office record and Outpatient record Discharge Plan Discharge Clinical Impression: Hematuria Patient Disposition: Home, Self-Care Instructions: Hematuria (ED) Additional Instructions: Your lab work today is reassuring. Your urine is negative for infection, blood, and . The CT scan of your abdomen/pelvis does not demonstrate obstructing renal stones. As discussed, there are incidental findings of mildly enlarged bilateral iliac lymph nodes, similar to scan in 2015. You need to follow up with general surgery for these findings. The CT scan read has been attached below. It is possible you may be passing small renal stones that we are unable to see on CT scan. Naproxen as an anti-inflammatory pain medication that has been sent to your pharmacy for treatment. Prednisone as a steroid that has been sent to your pharmacy which will help with inflammation/pain. Increase your hydration to help flush any stones out. Return with new or worsening symptoms. In the case of an emergency call 911. CT ABDOMEN/PELVIS: CT abdomen pelvis wo IV con IMPRESSION: 1. Punctate nonobstructing bilateral renal stones similar to prior. No hydronephrosis or obstructive ureterolithiasis. 2. Mildly enlarged bilateral iliac chain lymph nodes measuring up to 1.3 cm short axis in the right external iliac chain similar to 2015 though may reflect some underlying chronic low-grade lymphoproliferative process, consider correlation with tissue sampling of the dominant external iliac chain node if warranted clinically. 3. Hepatic steatosis. Prescriptions: New prednisone 20 mg tablet 40 mg PO DAILY 5 Days Qty: 10 0RF naproxen 500 mg tablet 500 mg PO Q8-12H PRN (Reason: pain (scale score 4-6)) Qty: 20 0RF No Action tramadol 50 mg tablet 50 mg PO Q6H PRN (Reason: pain) Qty: 20 0RF fuwquyesqr-qoxlsoznxhsnd-eetp [Fioricet] 50-300-40 mg capsule 1 cap PO Q6H PRN (Reason: headache) Qty: 20 0RF metoclopramide HCl [Reglan] 10 mg tablet 10 mg PO Q6H PRN (Reason: nausea and vomiting) Qty: 14 0RF amoxicillin-pot clavulanate [Augmentin] 875-125 mg tablet 1 tab PO Q12H 10 Days Qty: 20 0RF Referrals: [facility] General Surgeons [Provider Group] [facility] Urology Services [Provider Group] Fabiana Mercer MD [Primary Care Provider] - Interventions: ED Discharge Assessment Last Done: 03/31/24 19:53 Discharge Date/Time: 03/31/24 19:55 Print Language: Ghanaian
[2024-03-31 12:46] LABS: MANUAL DIFF FLAG NO
[2024-03-31 12:50] LABS: Appearance Urine Clear; Color Urine Yellow; Glucose Urine UA Negative (Negative); Leukocyte Esterase Urine Small (1+) (Negative); Nitrite Urine Negative (Negative); PH 5.5 (5.0-9.0); UMIC TRIGGER UACC YES; Urine Blood Negative (Negative); Urine Ketones Negative (Negative); Urine Protein 30 (1+) mg/dL (Neg-Trace)
[2024-03-31 12:51] LABS: Basophils Percent Auto 0.6 % (0-2); Eosinophils Percent Auto 1.1 % (0-4); Hematocrit 36.1 % (37.0-47.0); Imm Gran Abs Auto 0.01 X10*3/uL (0.00-0.03); Imm Gran Pct Auto 0.3 % (0.0-0.4); Lymphocytes Absolute Auto 1.2 X10*3/uL (1.2-4.9); Lymphocytes Percent Auto 33.9 % (20-40); Mean Corpuscular HGB Conc 30.5 g/dl (31.0-35.0); Mean Corpuscular Hemoglobin 23.7 pg (27.0-33.0); Mean Corpuscular Volume 77.8 fL (80.0-98.0); Mean Platelet Volume 10.3 fL (9.4-12.3); Monocytes Absolute Auto 0.4 X10*3/uL (0.1-1.2); Monocytes Percent Auto 12.1 % (2-11); Neutrophils Absolute Auto 1.9 x10*3/uL (2.0-8.3); Platelet Count 273 X10*3/uL (160-400); Red Blood Count 4.64 X10*6/uL (4.20-5.50); Red Cell Distribution Width 18.1 % (11.0-16.0); White Blood Count 3.6 X10*3/uL (4.8-10.8)
[2024-03-31 12:52] LABS: Bacteria Urine None Seen (None Seen); Hyaline Casts Urine 0-2 /LPF (0-2); RBC Urine 0-2 /HPF (0-2); UACC Culture Trigger YES
[2024-03-31 12:53] LABS: UPreg QC Valid YES; Urine Pregnancy NEGATIVE (NEGATIVE)
[2024-03-31 13:03] LABS: Alanine Aminotransferase 23 U/L (0-31); Alkaline Phosphatase 109 U/L (39-117); Anion Gap 9 (12-20); Aspartate Amino Transferase 33 U/L (5-31); Bilirubin Total 0.3 mg/dL (0.0-1.0); Blood Urea Nitrogen 7 mg/dL (9-16); Calcium 9.6 mg/dL (8.4-10.2); Carbon Dioxide 26 mmol/L (22-29); Chloride 110 mmol/L (96-108); Creatinine Clr Calc Pharmacy 119.9; Estimated Glomerular Filt Rate > 60; Glucose Random 102 mg/dL (60-115); Potassium 4.4 mmol/L (3.3-5.1); Sodium 141 mmol/L (135-145); Total Protein 7.8 g/dL (6.5-8.0)
[2024-03-31 17:29] VITALS: BP 127/83; PULSE 74; RESP 14; TEMP 36.7; O2SAT 96
[2024-03-31 19:44] VITALS: BP 132/82; PULSE 77; RESP 18; TEMP 36.5; O2SAT 98
[2024-03-31] MEDS: Ketorolac Tromethamine 30 MG/ML VIAL IM (19:51)
[2024-03-31 19:53] VITALS: BP 138/76; PULSE 90; RESP 18; TEMP 36.6; O2SAT 99
== END 2024-03-31 19:55 | disposition home or self-care (01) ==
PROVIDERS: Nurse Practitioner Family; Emergency Provider Emergency Medicine; PCP Internal Medicine
DX: R31.9 Hematuria, unspecified (principal); R10.2 Pelvic and perineal pain; Z79.899 Other long term (current) drug therapy
CPT/HCPCS: 36415; 74176; 80053; 81001; 81025; 85025; 87086; 96372; 99283; 99284; J1885

== ENCOUNTER 2024-05-18 14:00 | Outpatient (AMB) | payer OTHER, SELFPAY ==
--- NOTE | 2024-05-18 14:13 | A.OFFVIS_ITS ---
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 Mercer. She has a past history of nephrolithiasis, arthritis, lupus, and depression. She presents to the office today as a new patient for nephrolithiasis. In discussion with the patient today she reports having seeked emergency room care approximately 3 months ago for hematuria and lower abdominal pain she had been experiencing at which time a CT of the abdomen was ordered and performed. These results reviewed with the patient today. Punctate nonobstructing bilateral renal stones similar to prior study. No hydronephrosis or obstructive ureteralithiasis. She reports a longstanding history of nephrolithiasis however never requiring surgical intervention. Discussed at length potential causes of nephrolithiasis. She currently denies any bothersome urinary issues or pavan rns. She denies having had any other episodes of gross hematuria since her ER visit. She reports pain has since subsided. She denies urinary urgency, urinary frequency, incontinence, nocturia, hematuria, dysuria, foul smelling urine, changes to urinary stream, flank pain, fever, and or chills. She is happy with her current voiding parameters. In office urinalysis results reviewed with the patient today. She otherwise denies any other issues or concerns at this time. [facility] Medical History Hx of herpes zoster Depression Arthritis Surgical History Hx of vaginal surgery Review of Systems Const All systems reviewed & are unremarkable except as noted in HPI and below Physical Exam Const General: cooperative, healthy appearing, comfortable, no acute distress, well developed, alert and awake Orientation/consciousness: patient oriented x3 HEENT Head: Yes normal to inspection, Yes normocephalic and Yes atraumatic Ears: hearing grossly normal bilaterally Eyes General: appearance normal, both eyes and all related structures Neck Neck: Yes normal visual inspection and Yes trachea midline Chest Chest palpation & inspection: normal inspection of the chest Resp Effort & Inspection: normal respiratory effort and able to speak in complete sentences Cardio Rate: regular rate GI Inspection: Yes normal to inspection General: Yes no CVA tenderness Back/Spine/Pelvis Back: no CVA tenderness Skin General skin exam: no rashes or lesions noted Neuro General: patient oriented x3 Extrem General: Yes normal to inspection Psych Appearance: grossly normal and well kempt Mental Status: mental status grossly normal Speech and movement: Normal speech and movement present and Clear speech present Affect: normal affect Attitude: cooperative Thought process: Normal thought process present Thought content: Normal thought content present Insight: Fair insight present (Psych) Judgement: Fair judgement present (Psych) Results AMB Urinalysis, Automated UA Leukoctes 0 Therese/uL Last Edit by Mixercast on 05/18/24 14:35 UA Nitrite Negative Last Edit by Mixercast on 05/18/24 14:35 UA Urobilinogen 0.2 mg/dL Last Edit by Mixercast on 05/18/24 14:35 UA Protein 30 mg/dL Last Edit by Mixercast on 05/18/24 14:35 UA pH 6.0 Last Edit by Mixercast on 05/18/24 14:35 UA Blood 0 Agustin/uL Last Edit by Mixercast on 05/18/24 14:35 UA Specific [place] 1.030 Last Edit by Mixercast on 05/18/24 14:35 UA Ketone Positive Last Edit by Mixercast on 05/18/24 14:35 UA Bilirubin 1 mg/dL Last Edit by Mixercast on 05/18/24 14:35 UA Glucose 0 mg/dL Last Edit by Mixercast on 05/18/24 14:35 Results Reviewed Results Reviewed: Date of Service: 03/31/24 EXAMINATION: CT ABDOMEN AND PELVIS WITHOUT CONTRAST FINDINGS: LUNG BASES: Unremarkable. ABDOMINAL AND PELVIC WALL: Tiny fat-containing umbilical hernia. LIVER AND BILIARY TREE: Hypoattenuating hepatic parenchyma compatible with hepatic steatosis. GALLBLADDER: Unremarkable. PANCREAS: Unremarkable. SPLEEN: Unremarkable. ADRENAL GLANDS: Unremarkable. KIDNEYS AND URETERS: Punctate nonobstructing bilateral renal stones similar to prior. No hydronephrosis or obstructive ureterolithiasis. GASTROINTESTINAL TRACT: Small hiatal hernia. Colonic diverticulosis without evidence of diverticulitis. Appendicoliths in an otherwise normal appendix. VASCULAR: Unremarkable. LYMPH NODES/PERITONEUM: Mildly enlarged bilateral iliac chain lymph nodes measuring up to 1.3 cm short axis in the right external iliac chain, 2:64, previously 1.2 cm similar to 2015. FREE FLUID: None. BLADDER: Unremarkable. PELVIC VISCERA: Unremarkable. OSSEOUS STRUCTURES: Unremarkable. IMPRESSION: 1. Punctate nonobstructing bilateral renal stones similar to prior. No hydronephrosis or obstructive ureterolithiasis. 2. Mildly enlarged bilateral iliac chain lymph nodes measuring up to 1.3 cm short axis in the right external iliac chain similar to 2015 though may reflect some underlying chronic low-grade lymphoproliferative process, consider correlation with tissue sampling of the dominant external iliac chain node if warranted clinically. 3. Hepatic steatosis. Assessment & Plan Assessment & Plan (1) Nephrolithiasis: Code(s): N20.0 - Calculus of kidney Category: Medical Plan In office urinalysis results reviewed with the patient today; as noted above. Recent CT results reviewed with the patient today; as noted above. Discussed at length potential causes of recurrent nephrolithiasis. Discussed further metabolic workup with 24 hour urine collection and labs. Patient currently denies any bothersome urinary issues or concerns. Discussed at length importance of adequate hydration in relation to nephrolithiasis as well as overall health and well-being. Will obtain renal ultrasound in 6 months. Follow-up in 6 months with imaging to be completed prior; or sooner with any issues, concerns, and or questions. Orders: Orders AMB Urinalysis Automated Today Z13.9 - Encounter for screening, unspecified US renal BI 6 Months N20.0 - Calculus of kidney Medications: Discontinued amoxicillin-pot clavulanate 875-125 mg (Augmentin) Discontinued Reason: Doctor's Order 1 tab PO Q12H 10 days 20 tabs 0RF tramadol Discontinued Reason: Patient Completed Course 50 mg PO Q6H PRN 20 tabs 0RF pain Patient Instructions: The patient had an opportunity to ask questions regarding the treatment plan. All questions were answered. Physical exam, labs, and imaging were discussed and reviewed in detail. As well as risks, benefits, and discussion of treatment choices. No major barriers to understanding were identified. The patient expressed understanding and agreement with the above treatment plan. The patient was made aware they should contact our office by phone for worsening of their current condition, the appearance of new symptoms, or with any questions or concerns. Compliance is encouraged with any medications and follow up testing that is ordered. It is a privilege to be allowed the opportunity to participate in? your urological care.? Again, if you have any questions or concerns If you have any questions or concerns please do not hesitate to contact me. The office is [phone]. This note is constructed using voice recognition software. While every effort has been made to ensure accuracy ream cutter errors may have been included. Yours sincerely, KAM Rodriguez Coding Level of Care Code New Pt Level 3 (76453) Diagnoses Nephrolithiasis N20.0
== END 2024-05-18 14:40 | disposition home or self-care (01) ==
PROVIDERS: PCP Internal Medicine; Visit Provider Nurse Practitioner Family
DX: N20.0 Calculus of kidney (principal); Z13.9 Encounter for screening, unspecified
CPT/HCPCS: 99203

== ENCOUNTER → 2024-05-18 14:00 | Outpatient (BNVA) | payer OTHER, SELFPAY | PROVIDERS: PCP Internal Medicine; Visit Provider Nurse Practitioner Family | DX: N20.0 Calculus of kidney (principal) | CPT/HCPCS: 81003; 99202 ==

== ENCOUNTER 2024-08-21 13:08 | Outpatient (REF) | payer OTHER, SELFPAY ==
[2024-08-21 13:22] LABS: MANUAL DIFF FLAG NO
[2024-08-21 14:06] LABS: Basophils Percent Auto 0.3 % (0-2); Eosinophils Percent Auto 0.9 % (0-4); Hematocrit 37.6 % (37.0-47.0); Hemoglobin 11.6 g/dl (12.0-16.0); Imm Gran Abs Auto 0.01 X10*3/uL (0.00-0.03); Imm Gran Pct Auto 0.3 % (0.0-0.4); Lymphocytes Absolute Auto 1.3 X10*3/uL (1.2-4.9); Lymphocytes Percent Auto 38.2 % (20-40); Mean Corpuscular HGB Conc 30.9 g/dl (31.0-35.0); Mean Corpuscular Hemoglobin 24.7 pg (27.0-33.0); Mean Corpuscular Volume 80.2 fL (80.0-98.0); Mean Platelet Volume 10.7 fL (9.4-12.3); Monocytes Absolute Auto 0.5 X10*3/uL (0.1-1.2); Neutrophils Absolute Auto 1.6 x10*3/uL (2.0-8.3); Neutrophils Percent Auto 46.3 % (45-73); Platelet Count 289 X10*3/uL (160-400); Red Blood Count 4.69 X10*6/uL (4.20-5.50); Red Cell Distribution Width 16.9 % (11.0-16.0); White Blood Count 3.4 X10*3/uL (4.8-10.8)
[2024-08-21 16:29] LABS: Alanine Aminotransferase 30 U/L (0-31); Albumin Level 4.2 g/dL (3.5-5.0); Alkaline Phosphatase 117 U/L (39-117); Anion Gap 13 (12-20); Aspartate Amino Transferase 42 U/L (5-31); Bilirubin Total 0.5 mg/dL (0.0-1.0); Blood Urea Nitrogen 6 mg/dL (9-16); Calcium 9.5 mg/dL (8.4-10.2); Carbon Dioxide 22 mmol/L (22-29); Chloride 109 mmol/L (96-108); Cholesterol 153 mg/dL (<200); Estimated Glomerular Filt Rate > 60; Glucose Random 88 mg/dL (60-115); HDL Cholesterol 47 mg/dL (>40); LDL Cholesterol Calculated 92 mg/dL (<100); Potassium 4.2 mmol/L (3.3-5.1); Sodium 140 mmol/L (135-145); Triglycerides 70 mg/dL (<150)
== END 2024-08-21 13:09 | disposition home or self-care (01) ==
LOC: HO.LAB 13:08
PROVIDERS: PCP Internal Medicine; Visit Provider Internal Medicine
DX: E66.9 Obesity, unspecified (principal); G47.00 Insomnia, unspecified; M32.9 Systemic lupus erythematosus, unspecified
CPT/HCPCS: 36415; 80053; 80061; 85025

== ENCOUNTER 2024-11-10 15:04 | Outpatient (REF) | payer OTHER, SELFPAY ==
--- NOTE | ~2024-11-10 | US_ITS ---
EXAMINATION: US RETROPERITONEAL LIMITED (RENAL ONLY) CLINICAL INFORMATION: Calculus of kidney. COMPARISON: No prior ultrasound. CT abdomen and pelvis 03/31/2024. TECHNIQUE: Real-time imaging of the kidneys. FINDINGS: RIGHT KIDNEY: 11.2 x 4.7 x 5.2 cm (SAG x AP x TRV). The kidney is normal in size, contour, and echogenicity. Renal cortical thickness is normal. No obstructing calculi or focal parenchymal lesions. No hydronephrosis. Nonobstructing mid to lower pole calculus measuring 3 mm. LEFT KIDNEY: 10.4 x 5.1 x 4.4 cm (SAG x AP x TRV). The kidney is normal in size, contour, and echogenicity. Renal cortical thickness is normal. No obstructing calculi or focal parenchymal lesions. No hydronephrosis. Nonobstructing lower pole calculus measuring 3 mm. US/US renal BI IMPRESSION: 1. Bilateral 3 mm nonobstructing renal calculi. 2. No hydronephrosis. Kidneys otherwise normal. Electronically signed by: Néstor Her MD 11/13/2024 01:39 PM EST
== END 2024-11-10 15:05 | disposition home or self-care (01) ==
LOC: HO.US 15:04
PROVIDERS: PCP Internal Medicine; Visit Provider Nurse Practitioner Family
DX: N20.0 Calculus of kidney (principal)
CPT/HCPCS: 76775

== ENCOUNTER → 2024-11-10 15:06 | Outpatient (BNV) | payer OTHER, SELFPAY | PROVIDERS: PCP Internal Medicine; Visit Provider Radiology Diagnostic Radiology | DX: N20.0 Calculus of kidney (principal) | CPT/HCPCS: 76775 ==

== ENCOUNTER 2024-11-20 10:38 | Outpatient (AMB) | payer OTHER, SELFPAY ==
--- NOTE | 2024-11-20 10:40 | A.OFFVIS_ITS ---
Intake Visit Reasons: 6m/US(set) Intake Note: Patient presents for follow up visit on: nephrolithiasis and ultrasound results * Imaging Completed: 11/10/24 Urology Medications: none Blood Thinner: none Police Lieutenant Required: No Accompanied by: Self / Same As Patient Allergies No Known Allergies Allergy (Verified 11/20/24 10:43) Medication List - Last Reconciled 11/20/24 by MYA Rodriguez-ABRAHAM acetaminophen ER (Tylenol 8 Hour) 650 mg PO Q12H buspirone 15 mg PO BID vdpdkrzndm-pxqmnyqnybxdz-vxyw 50-300-40 mg (Fioricet) 1 cap PO Q6H PRN cetirizine (Zyrtec) 10 mg PO DAILY PRN duloxetine 60 mg PO DAILY fluticasone propionate 50 mcg/actuation 1 spray intranasal DAILY hydroxychloroquine (Plaquenil) 200 mg PO DAILY metoclopramide HCl (Reglan) 10 mg PO Q6H PRN naproxen 500 mg PO Q8-12H PRN nifedipine ER 60 mg PO DAILY olopatadine 0.1% 1 drp ophthalmic (eye) BID prednisone 40 mg (2 x 20 mg) PO DAILY 5 days salicylic acid 13.6% ea topical triamcinolone acetonide 0.5% 1 appl topical BID zolpidem (Ambien) 10 mg PO BEDTIME PRN HPI Comments Details: Veronica is a very pleasant 34-year-old female patient of Dr. Mercer. She has a past history of nephrolithiasis, arthritis, lupus, and depression. She presents to the office today for follow-up of her nephrolithiasis. In discussion with the patient today she reports to be doing and feeling well. She reports no bothersome urinary issues since her last office visit here approximately 6 months ago. Recent renal imaging results reviewed with the patient today 11/11 bilateral kidneys are normal in size, contour, and echogenicity. Bilateral kidneys with no hydronephrosis. Bilateral kidneys with nonobstructing renal calculi measuring 3 mm. She discusses finding it difficult to increase her fluids and or drink water daily. She otherwise denies any bothersome urinary issues or concerns. In office urinalysis results reviewed with the patient today. She denies any other issues or concerns at this time. [facility] Medical History Hx of herpes zoster Depression Arthritis Surgical History Hx of vaginal surgery Review of Systems Const All systems reviewed & are unremarkable except as noted in HPI and below Physical Exam Const General: cooperative, healthy appearing, comfortable, no acute distress, well developed, alert and awake Orientation/consciousness: patient oriented x3 HEENT Head: Yes normal to inspection, Yes normocephalic and Yes atraumatic Ears: hearing grossly normal bilaterally Eyes General: appearance normal, both eyes and all related structures Neck Neck: Yes normal visual inspection and Yes trachea midline Chest Chest palpation & inspection: normal inspection of the chest Resp Effort & Inspection: normal respiratory effort and able to speak in complete sentences Cardio Rate: regular rate GI Inspection: Yes normal to inspection General: Yes no CVA tenderness Back/Spine/Pelvis Back: no CVA tenderness Skin General skin exam: no rashes or lesions noted Neuro General: patient oriented x3 Extrem General: Yes normal to inspection Psych Appearance: grossly normal and well kempt Mental Status: mental status grossly normal Speech and movement: Normal speech and movement present and Clear speech present Affect: normal affect Attitude: cooperative Thought process: Normal thought process present Thought content: Normal thought content present Insight: Fair insight present (Psych) Judgement: Fair judgement present (Psych) Results AMB Urinalysis, Automated UA Leukoctes 0 Therese/uL Last Edit by Gonsalo Chisholm on 11/20/24 11:11 UA Nitrite Last Edit by Gonsalo Chisholm on 11/20/24 11:11 UA Urobilinogen 0.2 mg/dL Last Edit by Gonsalo Chisholm on 11/20/24 11:11 UA Protein 30 mg/dL Last Edit by Gonsalo Chisholm on 11/20/24 11:11 UA pH 6.0 Last Edit by Gonsalo Chisholm on 11/20/24 11:11 UA Blood 0 Agustin/uL Last Edit by Wilmeralonmata Olguinlanette on 11/20/24 11:11 UA Specific Goodman 1.030 Last Edit by Gonsalo Claulanette on 11/20/24 11:11 UA Ketone Last Edit by Gonsalo Claulanette on 11/20/24 11:11 UA Bilirubin 0 mg/dL Last Edit by Gonsalo Claulanette on 11/20/24 11:11 UA Glucose 0 mg/dL Last Edit by Gonsalo Claulanette on 11/20/24 11:11 Results Reviewed Results Reviewed: Laboratory Last Values Urine pH (Auto) 6.0 11/20/24 11:10 Specific Goodman (Auto) 1.030 11/20/24 11:10 Urine Protein (Auto) 30 mg/dL 11/20/24 11:10 Glucose (UA)(Auto) 0 mg/dL 11/20/24 11:10 Urine Blood (Auto) 0 Agustin/uL 11/20/24 11:10 Urine Bilirubin (Auto) 0 mg/dL 11/20/24 11:10 Urine Urobilinogen (Auto) 0.2 mg/dL 11/20/24 11:10 Leukocyte Esterase (Auto) 0 Therese/uL 11/20/24 11:10 Date of Service: 11/10/24 EXAMINATION: US RETROPERITONEAL LIMITED (RENAL ONLY) FINDINGS: RIGHT KIDNEY: 11.2 x 4.7 x 5.2 cm (SAG x AP x TRV). The kidney is normal in size, contour, and echogenicity. Renal cortical thickness is normal. No obstructing calculi or focal parenchymal lesions. No hydronephrosis. Nonobstructing mid to lower pole calculus measuring 3 mm. LEFT KIDNEY: 10.4 x 5.1 x 4.4 cm (SAG x AP x TRV). The kidney is normal in size, contour, and echogenicity. Renal cortical thickness is normal. No obstructing calculi or focal parenchymal lesions. No hydronephrosis. Nonobstructing lower pole calculus measuring 3 mm. IMPRESSION: 1. Bilateral 3 mm nonobstructing renal calculi. 2. No hydronephrosis. Kidneys otherwise normal. Assessment & Plan Assessment & Plan (1) Nephrolithiasis: Code(s): N20.0 - Calculus of kidney Category: Medical Plan In office urinalysis results reviewed with the patient today; as noted above. Recent renal imaging results with the patient today; as noted above. Discussed at length potential causes of recurrent nephrolithiasis. Discussed further metabolic workup with 24 hour urine collection and labs. Patient currently denies any bothersome urinary issues or concerns. Discussed at length importance of adequate hydration in relation to nephrolithiasis as well as overall health and well-being. Will obtain renal ultrasound in 6 months. Discussed adding 1 oz of lemon juice to water daily. Follow-up in 6 months with imaging to be completed prior; or sooner with any issues, concerns, and or questions. Orders: Orders US renal BI 6 Months N20.0 - Calculus of kidney AMB Urinalysis Automated Today Z13.9 - Encounter for screening, unspecified Patient Instructions: The patient had an opportunity to ask questions regarding the treatment plan. All questions were answered. Physical exam, labs, and imaging were discussed and reviewed in detail. As well as risks, benefits, and discussion of treatment choices. No major barriers to understanding were identified. The patient expressed understanding and agreement with the above treatment plan. The patient was made aware they should contact our office by phone for worsening of their current condition, the appearance of new symptoms, or with any questions or concerns. Compliance is encouraged with any medications and follow up testing that is ordered. It is a privilege to be allowed the opportunity to participate in? your urological care.? Again, if you have any questions or concerns If you have any questions or concerns please do not hesitate to contact me. The office is [phone]. This note is constructed using voice recognition software. While every effort has been made to ensure accuracy pipeline dispatcher errors may have been included. Yours sincerely, KAM Rodriguez Coding Level of Care Code Est Pt Level 3 (83126) Diagnoses Nephrolithiasis N20.0
== END 2024-11-20 11:08 | disposition home or self-care (01) ==
PROVIDERS: PCP Internal Medicine; Visit Provider Nurse Practitioner Family
DX: N20.0 Calculus of kidney (principal); Z13.9 Encounter for screening, unspecified
CPT/HCPCS: 99213

== ENCOUNTER → 2024-11-20 10:38 | Outpatient (BNVA) | payer OTHER, SELFPAY | PROVIDERS: PCP Internal Medicine; Visit Provider Nurse Practitioner Family | DX: N20.0 Calculus of kidney (principal) | CPT/HCPCS: 81003; 99212 ==

== ENCOUNTER 2025-04-30 16:01 | Outpatient (REF) | payer OTHER, SELFPAY ==
--- NOTE | ~2025-04-30 | US_ITS ---
EXAMINATION: US KIDNEY BILATERAL HISTORY: N20.0 - Calculus of kidney TECHNIQUE: Real-time grayscale ultrasound imaging of the kidneys was performed and images were reviewed. COMPARISON: Comparison is made with the prior examination dated 11/10/2024. FINDINGS: Right kidney: The right kidney measures 11.1 x 3.8 x 4.0 cm. Renal parenchymal echotexture and thickness are normal. There are no masses. There is a punctate echogenic focus in the interpolar region which may represent a calculus. There is no hydronephrosis. Left Kidney: The left kidney measures 9.7 x 4.3 x 4.2 cm. Renal parenchymal echotexture and thickness are normal. There are no masses. There are 3 mm nonobstructing calculi in the mid and lower pole regions. There is no hydronephrosis. US/US renal BI IMPRESSION: Bilateral nephrolithiasis as described. No hydronephrosis. Electronically signed by: Jose Britton MD 05/01/2025 07:08 AM EDT
--- OUTSIDE RECORDS SUMMARY | 2025-04-30 16:57 | XMS_ITS | Clinical Summary ---
Author Organization [facility] Address [address] [place] [id number] Phone Care Team Providers Care Accounting Consultant Name Role Phone Unavailable Primary Care Provider Unavailabl e Immunizations Immunization Administration Dates Next Due DTP 03/18/1995, 2,1990,1989,1990 HPV, Quadrivalent 03/06/2008 Hep B, ped/adol 10/31/2002,10/30/2002,02/16/2002 Hib (PRP-T) 03/18/1992,04/11/1991,1990 MMR 03/18/1995,03/18/1992 OPV 03/18/1995, 2,1990,1989 Td (adult) (MBL), 2 Lf tetan us toxoid, PF, adsorbed 02/16/2002 Family History Relation Name Status Comments Brother 1 Alive Brother: Alive and well, Alive and well, Alive and well Brother 2 Alive Brother: Alive and well, Alive and well, Alive and well Brother 3 Alive Brother: Alive and well, Alive and well, Alive and well Father Alive Father: Alive a nd well Mother Alive Mother: Diabete s mellitus Social History Tobacco Use Types Packs/Day Years Used Date Smoking Tobacco: Never Assessed Comments Unknown Sex and Gender Information Value Date Recorded Sex Assigned at Not on file Legal Sex Female 4:26 PM EDT Gender Identity Not on file Sexual Orientation Not on file Plan of Treatment Health Maintenance Due Date Last Done Comments DTaP,Tdap,and Td Vaccines (6 - Tdap) 02/17/2002 02/16/2002, 03/18/1995, 03/18/1992, Additional history exists Hepatitis B Vaccines (4 of 4 - 4-dose series) 12/25/2002 10/31/2002, 10/30/2002, 02/16/2002 Varicella Vaccines (1 of 2 - 13+ 2-dose series) 2003 HPV Vaccines (2 - 3-dose series) 04/03/2008 03/06/2008 COVID-19 Vaccine (2023- season) 2024 Influenza Vaccines (#1) 2025 HIB Vaccines Completed 03/18/1992, 03/19, 1990 IPV Vaccines Completed 03/18/1995, 10/1991, 1990, Additional history exists MMR Vaccines Completed 03/18/1995, 03/18/1992 Hepatitis A Vaccines Aged Out No long er eligible based on patient's age to complete this topic Men B Vaccine Aged Out No longer elig ible based on patient's age to complete this topic Meningococcal Vaccine Aged Out No colby julio césar eligible based on patient's age to complete this topic Pneumococcal Vaccine Aged Out No long er eligible based on patient's age to complete this topic
== END 2025-04-30 16:02 | disposition home or self-care (01) ==
LOC: HO.US 16:01
PROVIDERS: PCP Internal Medicine; Visit Provider Nurse Practitioner Family
DX: N20.0 Calculus of kidney (principal)
CPT/HCPCS: 76775

== ENCOUNTER → 2025-04-30 16:02 | Outpatient (BNV) | payer OTHER, SELFPAY | PROVIDERS: PCP Internal Medicine; Visit Provider Radiology Diagnostic Radiology | DX: N20.0 Calculus of kidney (principal) | CPT/HCPCS: 76775 ==

== ENCOUNTER 2025-05-10 09:17 | Outpatient (AMB) | payer OTHER, SELFPAY ==
--- NOTE | 2025-05-10 09:19 | A.OFFVIS_ITS ---
Intake Visit Reasons: Renal US/Followup(set) Intake Note: Patient is present for RENAL US F/U Urology Medication:NONE Antibiotic Allergy:NONE Blood Thinner:NONE Assistant Professor Of Criminal Justice Required: No Allergies No Known Allergies Allergy (Verified 05/10/25 09:58) Medication List - Last Reconciled 05/10/25 by MYA Rodriguez-ABRAHAM acetaminophen ER (Tylenol 8 Hour) 650 mg PO Q12H buspirone 15 mg PO BID onjyfztkwf-ggddqoxxvfkze-usrt 50-300-40 mg (Fioricet) 1 cap PO Q6H PRN cetirizine (Zyrtec) 10 mg PO DAILY PRN duloxetine 60 mg PO DAILY fluticasone propionate 50 mcg/actuation 1 spray intranasal DAILY hydroxychloroquine (Plaquenil) 200 mg PO DAILY metoclopramide HCl (Reglan) 10 mg PO Q6H PRN nifedipine ER 60 mg PO DAILY olopatadine 0.1% 1 drp ophthalmic (eye) BID prednisone 40 mg (2 x 20 mg) PO DAILY 5 days triamcinolone acetonide 0.5% 1 appl topical BID zolpidem (Ambien) 10 mg PO BEDTIME PRN HPI Comments Details: Veronica is a very pleasant 35-year-old female patient of Dr. Mercer. She has a past history of nephrolithiasis, arthritis, lupus, and depression. She presents to the office today for follow-up of her nephrolithiasis. In discussion with the patient today she reports to be doing and feeling well. She reports no bothersome urinary issues since her last office visit here approximately 6 months ago. Recent renal imaging results reviewed with the patient today 05/11 bilateral kidneys are normal in echotexture and thickness. There are no renal masses or hydronephrosis noted bilaterally. There is a punctate echogenic focus in the interpolar region of the right kidney and a 3 mm nonobstructing calculus in the mid pole of the left kidney. When asked she continues to attempt to drink plenty of water daily. She denies having had any bothersome lower urinary tract symptoms. She denies urinary urgency, urinary frequency, incontinence, nocturia, hematuria, dysuria, foul smelling urine, changes to urinary stream, flank pain, fever, and or chills. She is happy with her current voiding parameters. In office urinalysis results reviewed with the patient today. She denies any other issues or concerns at this time. [facility] Medical History Hx of herpes zoster Depression Arthritis Surgical History Hx of vaginal surgery Review of Systems Const All systems reviewed & are unremarkable except as noted in HPI and below Physical Exam Const General: cooperative, healthy appearing, comfortable, no acute distress, well developed, alert and awake Orientation/consciousness: patient oriented x3 HEENT Head: Yes normal to inspection, Yes normocephalic and Yes atraumatic Ears: hearing grossly normal bilaterally Eyes General: appearance normal, both eyes and all related structures Neck Neck: Yes normal visual inspection and Yes trachea midline Chest Chest palpation & inspection: normal inspection of the chest Resp Effort & Inspection: normal respiratory effort and able to speak in complete sentences Cardio Rate: regular rate GI Inspection: Yes normal to inspection General: Yes no CVA tenderness Back/Spine/Pelvis Back: no CVA tenderness Skin General skin exam: no rashes or lesions noted Neuro General: patient oriented x3 Extrem General: Yes normal to inspection Psych Appearance: grossly normal and well kempt Mental Status: mental status grossly normal Speech and movement: Normal speech and movement present and Clear speech present Affect: normal affect Attitude: cooperative Thought process: Normal thought process present Thought content: Normal thought content present Insight: Fair insight present (Psych) Judgement: Fair judgement present (Psych) Results AMB Urinalysis, Automated UA Leukoctes 0 Therese/uL Last Edit by SUE Hernandez on 05/10/25 09:36 UA Nitrite Negative Last Edit by SUE Hernandez on 05/10/25 09:36 UA Urobilinogen 0.2 mg/dL Last Edit by SUE Hernandez on 05/10/25 09:3 6 UA Protein 30 mg/dL Last Edit by SUE Hernandez on 05/10/25 09:36 UA pH 6.0 Last Edit by SUE Hernandez on 05/10/25 09:36 UA Blood 0 Agustin/uL Last Edit by SUE Hernandez on 05/10/25 09:36 UA Specific [place] 1.030 Last Edit by SUE Hernandez on 05/10/25 09: 36 UA Ketone Negative Last Edit by SUE Hernandez on 05/10/25 09:36 UA Bilirubin 1 mg/dL Last Edit by SUE Hernandez on 05/10/25 09:36 UA Glucose 0 mg/dL Last Edit by SUE Hernandez on 05/10/25 09:36 Results Reviewed Results Reviewed: Laboratory Last Values Urine pH (Auto) 6.0 05/10/25 09:35 Specific V[place] (Auto) 1.030 05/10/25 09:35 Urine Protein (Auto) 30 mg/dL 05/10/25 09:35 Glucose (UA)(Auto) 0 mg/dL 05/10/25 09:35 Urine Ketones (Auto) Negative 05/10/25 09:35 Urine Blood (Auto) 0 Agustin/uL 05/10/25 09:35 Urine Nitrite (Auto) Negative 05/10/25 09:35 Urine Bilirubin (Auto) 1 mg/dL 05/10/25 09:35 Urine Urobilinogen (Auto) 0.2 mg/dL 05/10/25 09:35 Leukocyte Esterase (Auto) 0 Therese/uL 05/10/25 09:35 Date of Service: 04/30/25 Procedure(s): US renal BI FINDINGS: Right kidney: The right kidney measures 11.1 x 3.8 x 4.0 cm. Renal parenchymal echotexture and thickness are normal. There are no masses. There is a punctate echogenic focus in the interpolar region which may represent a calculus. There is no hydronephrosis. Left Kidney: The left kidney measures 9.7 x 4.3 x 4.2 cm. Renal parenchymal echotexture and thickness are normal. There are no masses. There are 3 mm nonobstructing calculi in the mid and lower pole regions. There is no hydronephrosis. IMPRESSION: Bilateral nephrolithiasis as described. No hydronephrosis. Assessment & Plan Assessment & Plan (1) Nephrolithiasis: Code(s): N20.0 - Calculus of kidney Category: Medical Plan In office urinalysis results reviewed with the patient today; as noted above. Recent renal imaging results with the patient today; as noted above. Discussed at length potential causes of recurrent nephrolithiasis. Patient currently denies any bothersome urinary issues or concerns. Discussed at length importance of adequate hydration in relation to nephrolithiasis as well as overall health and well-being. Will obtain renal ultrasound in 6 months. Discussed adding 1 oz of lemon juice to water daily. Follow-up in 6 months with imaging to be completed prior; or sooner with any issues, concerns, and or questions. Orders: Orders AMB Urinalysis Automated Today Z13.9 - Encounter for screening, unspecified US renal BI 6 Months N20.0 - Calculus of kidney Patient Instructions: The patient had an opportunity to ask questions regarding the treatment plan. All questions were answered. Physical exam, labs, and imaging were discussed and reviewed in detail. As well as risks, benefits, and discussion of treatment choices. No major barriers to understanding were identified. The patient expressed understanding and agreement with the above treatment plan. The patient was made aware they should contact our office by phone for worsening of their current condition, the appearance of new symptoms, or with any questions or concerns. Compliance is encouraged with any medications and follow up testing that is ordered. It is a privilege to be allowed the opportunity to participate in? your urological care.? Again, if you have any questions or concerns If you have any questions or concerns please do not hesitate to contact me. The office is [phone]. This note is constructed using voice recognition software. While every effort has been made to ensure accuracy subcontract administrator errors may have been included. Yours sincerely, KAM Rodriguez Coding Level of Care Code Est Pt Level 3 (98329) Diagnoses Nephrolithiasis N20.0
--- OUTSIDE RECORDS SUMMARY | 2025-05-10 09:47 | XMS_ITS | Clinical Summary ---
Author Organization [facility] Address [address] [place] [id number] Phone Care Team Providers Care Manager Cath Lab Name Role Phone Fabiana Mercer MD Primary Care Provider Allergies No known active allergies Medications busPIRone (BUSPAR) 15 MG tablet Take 1 tablet by mouth every morning. 3 Active betamethasone, augmented, (DIPROLENE AF) 0.05 % cream Apply topically 2 (two) times a day. 3 Active DULoxetine (CYMBALTA) 60 MG capsule Take 1 capsule by mouth every morning. 3 Active tacrolimus (PROTOPIC) 0.1 % ointment Apply topically 2 (two) times a day. 3 Active triamcinolone acetonide 0.5 % cream Apply topically 2 (two) times a day. 3 Active zolpidem (AMBIEN) 10 mg tablet Take 1 tablet by mouth nightly at bedtime as needed. 3 Active butalbital-aceta minophen-caffein e (FIORICET, ESGIC) 50-325-40 mg per tablet Take 1 tablet by mouth. 4 Active SUMAtriptan (IMITREX) 100 MG tablet Take 100 mg by mouth once as needed. 4 Active tolterodine (DETROL LA) 4 MG 24 hr capsule Take 1 capsule by mouth every morning. 4 Active predniSONE (DELTASONE) 5 MG tabletIndication s:Systemic lupus erythematosus, unspecified SLE type, unspecified organ involvement status,Long-term use of Plaquenil,shelter 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 Take 1 tablet (5 mg total) by mouth daily as needed (for flares). 30 tablet 3 5 Active calcium carbonate-vitami n D3 1500 mg (600 mg elemental)-400 units per tablet TAKE 1 TABLET BY MOUTH TWO TIMES A DAY 180 tablet 5 Active hydroxychloroqui ne (PLAQUENIL) 200 mg tabletIndication s:Systemic lupus erythematosus, unspecified SLE type, unspecified organ involvement status Take 1 tablet (200 mg total) by mouth 2 (two) times a day. 180 tablet 3 5 Active NIFEdipine (ADALAT CC) 60 MG 24 hr tabletIndication s:Raynaud's phenomenon without gangrene Take 1 tablet (60 mg total) by mouth daily. 90 tablet 3 5 Active Active Problems Problem Noted Date Diagnosed Date Long-term use of Plaquenil 12/21/2024 Assessment & Plan (03/28/2025 10:57 AM EDT): Continue daily sun protection and regular ophthalmology checkups at least every 12 months-most recent in September 2024 revealed no signs of Plaquenil toxicity. Assessment & Plan (12/21/2024 10:58 PM EST): Continue daily sun protection and regular ophthalmology checkups at least every 12 months-most recent in September 2024 revealed no signs of Plaquenil toxicity. 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 Daily calcium and vitamin D supplementation. Regular weightbearing exercises. Fall prevention strategies. Monitor for multiple side effects including but not limited to mood swings, increased intraocular and systemic pressure, diabetes, osteoporosis, fluid retention, increased appetite, risk of infection, bruising, hair thinning etc. Assessment & Plan (12/21/2024 10:59 PM EST): I reviewed with her need to minimize intake of prednisone to the absolutely necessary time and keep detailed record of its intake with location, severity, length of episode etc. Daily calcium and vitamin D supplementation. Regular weightbearing exercises. Fall prevention strategies. Monitor for multiple side effects including but not limited to mood swings, increased intraocular and systemic pressure, diabetes, osteoporosis, fluid retention, increased appetite, risk of infection, bruising, hair thinning etc. On selective serotonin reuptake inhibitor (SSRI) therapy 12/21/2024 Assessment & Plan (03/28/2025 10:58 AM EDT): Monitor for mood swings, increased muscle rigidity and temperature intolerance. Assessment & Plan (02/04/2025 10:57 PM EDT): Monitor for mood swings, increased muscle rigidity and temperature intolerance. Assessment & Plan (12/21/2024 10:57 PM EST): Monitor for mood swings, increased muscle rigidity and temperature intolerance. Primary insomnia 12/21/2024 Assessment & Plan (03/28/2025 10:58 AM EDT): Since she takes Ambien nightly for about 5 years I warned her that there are new reports in literature that daily use of Ambien over 5 years may increase risk of developing dementia. Principles of sleep hygiene reviewed and strongly encouraged. She reported trying melatonin 5 mg nightly for about 2 weeks I encouraged her to come consider retrying it for 4-6 weeks to minimum. She may benefit from formal sleep specialist evaluation. Assessment & Plan (02/04/2025 10:58 PM EDT): Since she takes Ambien nightly for about 5 years I warned her that there are new reports in literature that daily use of Ambien over 5 years may increase risk of developing dementia. Principles of sleep hygiene reviewed and strongly encouraged. She reported trying melatonin 5 mg nightly for about 2 weeks I encouraged her to come consider retrying it for 4-6 weeks to minimum. She may benefit from formal sleep specialist evaluation. Assessment & Plan (12/21/2024 10:57 PM EST): Since she takes Ambien nightly for about 5 years I warned her that there are new reports in literature that daily use of Ambien over 5 years may increase risk of developing dementia. Principles of sleep hygiene reviewed and strongly encouraged. She reported trying melatonin 5 mg nightly for about 2 weeks I encouraged her to come consider retrying it for 4-6 weeks to minimum. She may benefit from formal sleep specialist evaluation. Systemic lupus erythematosus 11/11/2023 Assessment & Plan (03/28/2025 11:26 AM EDT): Clinically and laboratory maria luisa appears stable as of most recent lab work from 11/22/2024 except for mild leukopenia and hypocomplementemia. She is up-to-date on ophthalmologic checkups as of September 2024. New set of lab work requested today and prior to next visit in 4 months-standing orders in [facility]. Carefully continue Plaquenil (hydroxychloroquine) 200 mg twice daily, use daily sun protection all year-round. Continue well-balanced nutritionally diet, proper hydration and gentle, regular exercise. Avoid falls, injuries, overuse and sick contacts. Assessment & Plan (02/04/2025 10:57 PM EDT): Clinically and laboratory maria luisa appears stable as of most recent lab work from 11/22/2024 except for mild leukopenia and hypocomplementemia. She is up-to-date on ophthalmologic checkups as of September 2024. Carefully continue Plaquenil (hydroxychloroquine) 200 mg twice daily, use daily sun protection all year-round. Continue well-balanced nutritionally diet, proper hydration and gentle, regular exercise. Avoid falls, injuries, overuse and sick contacts. Return in 3 months or earlier if necessary. Assessment & Plan (12/21/2024 10:53 PM EST): Clinically and laboratory maria luisa appears stable as of most recent lab work from 11/22/2024 except for mild leukopenia and hypocomplementemia. She is up-to-date on ophthalmologic checkups as of September 2024. Carefully continue Plaquenil (hydroxychloroquine) 200 mg twice daily, use daily sun protection all year-round. Continue well-balanced nutritionally diet, proper hydration and gentle, regular exercise. Avoid falls, injuries, overuse and sick contacts. Return in 3 months or earlier if necessary. Assessment & Plan (05/02/2024 7:48 PM EDT): Systemic lupus erythematosus appears stable on Plaquenil 2 tablets daily. Her eye exams are current and normal. She has no active symptoms of lupus. I advised her that she needs to work consistently on losing some weight. She is currently on Wegovy. She does not need labs today. Sent in refills for Plaquenil as well as a small prescription for prednisone to be used only as needed. Assessment & Plan (11/11/2023 3:54 PM EST): Systemic lupus appears stable with no active symptoms on Plaquenil 2 tablets daily. Her eye exams are current and normal. Sent her for some baseline labs to determine lupus disease activity. Advised her to avoid prolonged sun exposure. Raynaud's phenomenon without gangrene 11/11/2023 Assessment & Plan (03/28/2025 10:57 AM EDT): Keep warm, dress in layers. Optimize stress management strategies. Avoid vasoconstrictors in OTC products for cold/flu and sinus. Carefully continue oral daily nifedipine ER Assessment & Plan (02/04/2025 10:57 PM EDT): Keep warm, dress in layers. Optimize stress management strategies. Avoid vasoconstrictors in OTC products for cold/flu and sinus. Carefully continue oral daily nifedipine ER Assessment & Plan (12/21/2024 10:55 PM EST): Keep warm, dress in layers. Optimize stress management strategies. Avoid vasoconstrictors in OTC products for cold/flu and sinus. Carefully continue oral daily nifedipine ER Assessment & Plan (11/11/2023 3:55 PM EST): Chronic Raynaud's color changes on cold exposure. She has no digital ulcers. Continue with nifedipine ER. Advised her to keep her extremities warm and dry to prevent the incidence of color changes. Primary osteoarthritis involving multiple joints 11/11/2023 Assessment & Plan (03/28/2025 10:57 AM EDT): Continue joint protection, energy conservation. Gentle, regular exercise routine. Avoid falls, injuries, overuse. Keep body weight in ideal range for her height. She may benefit from topical cream such as Arnica, Biofreeze, Aspercreme versus medicated patches such as salonpas, icy hot patch 2-3 times daily and if necessary at bedtime x 3 weeks. She can take Tylenol 500-650 mg up to 3 times daily as needed. Assessment & Plan (02/04/2025 10:57 PM EDT): Continue joint protection, energy conservation. Gentle, regular exercise routine. Avoid falls, injuries, overuse. Keep body weight in ideal range for her height. She may benefit from topical cream such as Arnica, Biofreeze, Aspercreme versus medicated patches such as salonpas, icy hot patch 2-3 times daily and if necessary at bedtime x 3 weeks. She can take Tylenol 500-650 mg up to 3 times daily as needed. Assessment & Plan (12/21/2024 10:55 PM EST): Continue joint protection, energy conservation. Gentle, regular exercise routine. Avoid falls, injuries, overuse. Keep body weight in ideal range for her height. She may benefit from topical cream such as Arnica, Biofreeze, Aspercreme versus medicated patches such as salonpas, icy hot patch 2-3 times daily and if necessary at bedtime x 3 weeks. She can take Tylenol 500-650 mg up to 3 times daily as needed. Assessment & Plan (11/11/2023 3:55 PM EST): She has developed worsening osteoarthritis symptoms since her 25 pound weight gain. Strongly advised her to work on losing some weight. She can continue with Tylenol as needed and is advised to get daily physical activity. Encounters Date Type Department Care Team Description 03/28/2025 11:21 AM EDT - 03/28/2025 11:59 PM EDT Hospital Encounter [facility] [address] [place] [address] Shobha Dozier MD Discharge Disposition: Home or Self Care 03/28/2025 10:30 AM EDT Office Visit [facility] [address] [place] [address] Shobha Dozier MD Systemic lupus erythematosus, unspecified SLE type, unspecified organ involvement status (Primary Dx); Primary osteoarthritis involving multiple joints; Raynaud's phenomenon without gangrene; Long-term use of Plaquenil; On selective serotonin reuptake inhibitor (SSRI) therapy; shelter 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; Primary insomnia 02/18/2025 Refill [facility] [address] [place] [address] Shobha Dozier MD Medication Refill from Last 3 Months Social History Tobacco Use Types Packs/Day Years Used Date Smoking Tobacco: Never Smokeless Tobacco: Never Tobacco Cessation:Counseling Given: Not Answered Alcohol Use Standard Drinks/Week Comments Not Currently 0 (1 standard drink = 0.6 oz pur e alcohol) Education Answer Date Recorded Are you interested in more education? Not on marco antonio e 09/07/2023 Are you concerned about learning? Not on file 09/07/2023 No 09/07/2023 No 09/07/2023 Digital Access Answer Date Recorded No 09/07/2023 No 09/07/2023 Reliable internet access at home? Not on file 09/07/2023 Device with a working camera? Not on file Comments Unknown Sex and Gender Information Value Date Recorded Sex Assigned at Not on file Legal Sex Female 10:52 AM EST Gender Identity Not on file Sexual Orientation Not on file Last Filed Vital Signs Vital Sign Reading Time Taken Comments Blood Pressure 100/68 03/28/2025 10:41 AM EDT Pulse 90 03/28/2025 10:41 AM EDT Temperature - - Respiratory Rate - - Oxygen Saturation 97% 03/28/2025 10:41 AM EDT Inhaled Oxygen Concentration - - Weight 74.8 kg (165 lb) 03/28/2025 10:41 AM EDT Height 167.6 cm (5' 6 ) 03/28/2025 10:41 AM EDT Body Mass Index 26.63 03/28/2025 10:41 AM EDT Plan of Treatment Health Maintenance Due Date Last Done Comments Adult Td,Tdap Booster 1990 DEPRESSION SCREENING 2002 HEPATITIS C SCREENING 01/13/2008 HIV ONE-TIME SCREENING (18-6 5 YEARS) 01/13/2008 PAP SMEAR 2011 COVID-19 VACCINE (2023-2 5 season) 2024 SCREENING FOR DIABETES 03/28/2028 03/28/2025 SMOKING STATUS SCREENING (On ce After 26 Yrs) Completed 03/28/2025 HEPATITIS A VACCINES Aged Out No long er eligible based on patient's age to complete this topic HIB VACCINES Aged Out No longer eligi ble based on patient's age to complete this topic MENINGOCOCCAL VACCINES (ACWY) Aged Out No longer eligible based on patient's age to complete this topic MENINGOCOCCAL VACCINES (B) Aged Out N o longer eligible based on patient's age to complete this topic PNEUMOCOCCAL VACCINES (0-49 years) Aged Out No longer eligible based on patient's age to complete this topic Medical Devices Not on file Procedures Procedure Name Priority Date/Time Associated Diagnosis Comments COMPREHENSIVE METABOLIC PANEL Routine 03/28/2025 11:22 AM EDT Systemic lupus erythematosus, unspecified SLE type, unspecified organ involvement status Long-term use of Plaquenil shelter 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 C-REACTIVE PROTEIN Routine 03/28/2025 11 :22 AM EDT Systemic lupus erythematosus, unspecified SLE type, unspecified organ involvement status Long-term use of Plaquenil shelter 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 SEDIMENTATION RATE (ESR) Routine 03/28/2025 11:22 AM EDT Systemic lupus erythematosus, unspecified SLE type, unspecified organ involvement status Long-term use of Plaquenil 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 CBC AND DIFFERENTIAL Routine 03/28/2025 11:22 AM EDT Systemic lupus erythematosus, unspecified SLE type, unspecified organ involvement status Long-term use of Plaquenil 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 COMPLEMENT C3 Routine 03/28/2025 11:22 AM EDT Systemic lupus erythematosus, unspecified SLE type, unspecified organ involvement status Long-term use of Plaquenil shelter 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 COMPLEMENT C4 Routine 03/28/2025 11:22 AM EDT Systemic lupus erythematosus, unspecified SLE type, unspecified organ involvement status Long-term use of Plaquenil shelter 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 CPK (CREATINE KINASE) Routine 03/28/2025 11:22 AM EDT Systemic lupus erythematosus, unspecified SLE type, unspecified organ involvement status Long-term use of Plaquenil shelter 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 DOUBLE STRANDED DNA ANTIBODIES Routine 03/28/2025 11:22 AM EDT Systemic lupus erythematosus, unspecified SLE type, unspecified organ involvement status Long-term use of Plaquenil shelter 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 from Last 3 Months Results * Comprehensive metabolic panel (03/28/2025 11:22 AM EDT) SODIUM 140 133 - 146 mmol/L [facility] POTASSIUM 4.5 3.3 - 5.1 mmol/L [facility] CHLORIDE 107 96 - 108 mmol/L [facility] CO2 23 21 - 35 mmol/L [facility] BUN 9 6 - 19 mg/dL [facility] CREATININE 0.60 0.5 - 1.5 mg/dL [facility] GLUCOSE 87 70 - 99 mg/dL [facility] ALBUMIN 4.2 3.9 - 4.8 g/dL [facility] TOTAL PROTEIN 7.6 6.5 - 8.0 g/dL [facility] CALCIUM 9.5 8.4 - 10.3 mg/dL [facility] ALKALINE PHOSPHATASE 85 39 - 117 U/L [facility] TOTAL BILIRUBIN 0.4 0.0 - 1.2 mg/dL [facility] AST 29 0 - 37 U/L [facility] ALT 13 0 - 40 U/L [facility] GLOBULIN 3.4 1 - 4.8 g/dL [facility] EGFR 120 >59 mL/min/1.7 3m2 [facility] Comment:Estimated glomerular filtration rate calculated using the CKD-EPI refit equation. ANION GAP 15 10 - 20 mmol/L [facility] Blood 03/28/2025 11:2 2 AM EDT 03/28/2025 11:27 AM EDT Shobha Dozier MD LAB BLOOD ORDERABLES Fin al Result Performing Organization Address City/[facility]/ZIP Co de Phone Number [facility] [address] [place] [address] * Double stranded DNA antibodies (03/28/2025 11:22 AM EDT) ANTI DSDNA ANTIBODY POSITIVE AT 1:40 [facility] Comment: Performing Pathologist, Toni Willett M.D., Ph.D. [id number] Normal: Negative at 1:10 Anti-[place] DNA Antibodies detected on Crithidia luciliae substrate. The indirect immunofluorescence test on Crithidia luciliae substrate shows that antibodies in the serum of this patient react with the kinetoplast of Crithidia luciliae, a monoflagellate protozoan organism. The kinetoplast contains small ringlets of double-stranded DNA. It does not contain single-stranded DNA or, except in very unusual circumstances, free histones. This staining pattern therefore most likely reflects the presence of antibodies to double-stranded DNA. Antibodies to double-stranded DNA are found in patients with SLE and in about 20 per cent of patients with mixed connective tissue disease (MCTD). This antibody is rarely found in other rheumatic diseases or in drug-induced SLE. Uvul-odbzkg-itfortbw DNA antibodies are usually detected in SLE patients with active disease, but not in those with spontaneous or induced remissions. Sequential testing of serum for the presence and titer of this antibody provides a cost-effective approach to following disease activity in many patients with SLE. Blood 03/28/2025 11:2 2 AM EDT 03/28/2025 11:27 AM EDT Shobha Dozier MD LAB BLOOD ORDERABLES Fin al Result Performing Organization Address City/[facility]/ZIP Co de Phone Number [facility] [address] [place] [address] * Sedimentation rate (ESR) (03/28/2025 11:22 AM EDT) ESR 16 0 - 20 mm/h [facility] Blood 03/28/2025 11:2 2 AM EDT 03/28/2025 11:27 AM EDT us Shobha Dozier MD LAB BLOOD ORDERABLES Fin al Result [facility] [address] [place] [address] * (ABNORMAL) CBC and differential (03/28/2025 11:22 AM EDT) WBC 2.89(L) 4.00 - 11.00 K/uL [facility] RBC 4.61 4.00 - 5.20 M/uL [facility] HGB 11.9(L) 12.0 - 16.0 g/dL [facility] HCT 38.5 36.0 - 46.0 % [facility] PLT 223 150 - 450 K/uL [facility] MCV 83.5 80.0 - 100.0 fL [facility] MCH 25.8(L) 27.0 - 31.0 pg [facility] MCHC 30.9(L) 32.0 - 36.0 g/dL [facility] RDW 16.7(H) 11.5 - 14.5 % [facility] MPV 11.3 8.4 - 12.0 fL [facility] NRBC 0.00 0.00 /100 WBCs [facility] ABSOLUTE NRBC 0.00 0.00 K/uL [facility] DIFF METHOD Auto [facility] NEUTS 46.8(L) 48.0 - 76.0 % [facility] LYMPHS 40.1 18.0 - 41.0 % [facility] Comment: Few Atypical Lymphs MONOS 12.1(H) 4.0 - 11.0 % [facility] EOS 0.7 0.0 - 5.0 % [facility] BASOS 0.3 0.0 - 1.5 % [facility] Granulocytes, immature (%) 0.0 0.0 - 0.9 % [facility] ABSOLUTE NEUTS 1.35(L) 1.92 - 7.60 K/uL [facility] ABSOLUTE LYMPHS 1.16 0.72 - 4.10 K/uL [facility] ABSOLUTE MONOS 0.35 0.16 - 1.10 K/uL [facility] ABSOLUTE EOS 0.02 0.00 - 0.50 K/uL [facility] ABSOLUTE BASOS 0.01 0.00 - 0.15 K/uL [facility] Granulocytes, immature 0.00 0.00 - 0.09 K/uL [facility] Blood 03/28/2025 11:2 2 AM EDT 03/28/2025 11:27 AM EDT us Shobha Dozier MD LAB BLOOD ORDERABLES Fin al Result [facility] [address] [place] [address] * (ABNORMAL) Complement C3 (03/28/2025 11:22 AM EDT) C3 37(L) 81 - 157 mg/dl [facility] Blood 03/28/2025 11:2 2 AM EDT 03/28/2025 11:27 AM EDT us Shobha Dozier MD LAB BLOOD ORDERABLES Fin al Result Performing Organization Address City/[facility]/ZIP Co de Phone Number [address] [address] * (ABNORMAL) Complement C4 (03/28/2025 11:22 AM EDT) C4 <6(L) 12 - 39 mg/dL [facility] Comment:Result checked Blood 03/28/2025 11:2 2 AM EDT 03/28/2025 11:27 AM EDT us Shobha Dozier MD LAB BLOOD ORDERABLES Fin al Result [address] [address] * C-Reactive Protein (03/28/2025 11:22 AM EDT) C REACTIVE PROTEIN <3.0 0.0 - 4.0 mg/L [facility] Blood 03/28/2025 11:2 2 AM EDT 03/28/2025 11:27 AM EDT Shobha Dozier MD LAB BLOOD ORDERABLES Fin al Result Performing Organization Address City/[facility]/ZIP Co de Phone Number [address] [address] * CPK (creatine kinase) (03/28/2025 11:22 AM EDT) CREATINE KINASE 209 21 - 215 U/L [facility] Blood 03/28/2025 11:2 2 AM EDT 03/28/2025 11:27 AM EDT Shobha Dozier MD LAB BLOOD ORDERABLES Fin al Result Performing Organization Address [facility] Co de Phone Number [address] [address] from Last 3 Months Insurance AR[employer] BRUNNER [id number] [facility] MEDIC[place] [address] [place] [address] [place] [address] [place] [address] [address] CARE MEDICARE REPLACEMENT [facility] MEDICARE REPLACEMENT Care Teams Manager Cath Lab Relationship Specialty Start Date End Date Fabiana Mercer MD [address] [place] [address] Dr Ashraf, [place] [phone] PCP - General Internal Medicine 09/07/23 Additional Source Comments The information contained in this document represents components of the legal health record. It is not the complete legal health record.[facility]
--- OUTSIDE RECORDS SUMMARY | 2025-05-10 09:47 | XMS_ITS | Clinical Summary ---
Author Organization [facility] Address [address] [place] [id number] Phone Care Team Providers Care Clam Treader Name Role Phone Unavailable Primary Care Provider [...]
--- OUTSIDE RECORDS SUMMARY | 2025-05-10 09:47 | XMS_ITS | Clinical Summary ---
Author Organization 175 [facility] Address [address] [place] [address] Phone Care Team Providers Care Biofuels Plant Construction Worker Name Role Phone Fabiana Mercer MD Primary Care Provider [phone] Allergies No known active allergies Medications hydroxychloroq uine (PLAQUENIL) 200 mg tablet Take 2 tablets (400 mg total) by mouth 1 (one) time each day in the morning. Active NIFEdipine CC (ADALAT CC) 60 mg 24 hr tablet Take 1 tablet (60 mg total) by mouth 1 (one) time each day. Active zolpidem (AMBIEN) 10 mg tablet Take 1 tablet (10 mg total) by mouth at bedtime as needed. at bedtime for insomnia Max Daily Amount: 10 mg Active busPIRone (BUSPAR) 15 mg tablet Take 1 tablet (15 mg total) by mouth 1 (one) time each day. 5 Active DULoxetine (CYMBALTA) [address] capsule Take 1 capsule (60 mg total) by mouth 1 (one) time each day. 5 Active calcium carbonate-nicolás min D 600 mg-10 mcg (400 unit) per tablet Take 1 tablet by mouth 2 (two) times a day. Active butalbital-marco taminophen-caf feine (FIORICET, ESGIC) 50-325-40 mg per tablet Take 1 tablet by mouth if needed. Active tirzepatide, weight loss, (Zepbound) 10 mg/0.5 mL injection Inject 0.5 mL (10 mg total) under the skin every 7 (seven) days. 2 mL 5 025 Active tirzepatide, weight loss, (Zepbound) 7.5 mg/0.5 mL injection Inject 0.5 mL (7.5 mg total) under the skin every 7 (seven) days for 28 days. 2 mL 025 Discontinued Encounters Date Type Department Care Team Description 04/18/2025 Telephone Bariatric Surgery [address] [phone] Patrica Reid MD Med Refill (Zepbound w/titration ) 04/06/2025 Telephone Bariatric Surgery [address] [phone] Patrica Reid MD Med Refill (Zepbound) 03/15/2025 Telephone Bariatric Surgery [address] [phone] Patrica Reid MD Med Refill (Zepbound) 02/13/2025 1:00 PM EDT Office Visit Bariatric Surgery [address] [phone] Patrica Reid MD Over weight from Last 3 Months Social History Tobacco Use Types Packs/Day Years Used Date Smoking Tobacco: Never Assessed Comments Unknown Sex and Gender Information Value Date Recorded Sex Assigned at Not on file Legal Sex Female 1:55 AM EST Gender Identity Not on file Sexual Orientation Not on file Last Filed Vital Signs Vital Sign Reading Time Taken Comments Blood Pressure 106/74 02/13/2025 1:07 PM EDT Pulse 108 02/13/2025 1:07 PM EDT Temperature 36.6 C (97.8 F) 02/13/2025 1:07 PM EDT Respiratory Rate - - Oxygen Saturation - - Inhaled Oxygen Concentration - - Weight 79.8 kg (176 lb) 02/13/2025 1:07 PM EDT Height 165.1 cm (5' 5 ) 02/13/2025 1:07 PM EDT Body Mass Index 29.29 02/13/2025 1:07 PM EDT Plan of Treatment Upcoming Encounters Date Type Department Care Team (Late st Contact Info) Description 08/16/2025 9:15 AM EDT Office Visit Bariatric Surgery [address] [phone] Patrica Reid MD [address] [place] [address] Health Maintenance Due Date Last Done Comments Hepatitis B Vaccines (4 of 4 - 4-dose series) 12/25/2002 10/31/2002, 10/30/2002, 02/16/2002 HPV Vaccines (2 - 3-dose series) 04/03/2008 03/06/2008 Cervical Cancer Screening: Pap Smear 2011 DTaP,Tdap,and Td Vaccines (7 - Td or Tdap) 02/17/2012 02/16/2002, 03/18/1995, 03/18/1992, Additional history exists COVID-19 Vaccine (3 - Pfizer risk series) 08/29/2021 08/01/2021, 06/17/2021 Depression Screening 10/18/2024 HIV Screening 11/21/2024 Hepatitis C Screening 11/21/2024 Medicare Annual Wellness Visit 11/21/2024 Social Influencers of Health Screening 11/21/2024 Influenza Vaccine (#1) 2025 HIB Vaccines Completed 03/18/1992, 03/19, 1990 IPV Vaccines Completed 03/18/1995, 10/1991, 1990, Additional history exists MMR Vaccines Completed 03/18/1995, 03/18/1992 Hepatitis A Vaccines Aged Out No long er eligible based on patient's age to complete this topic Meningococcal ACWY Vaccine Aged Out N o longer eligible based on patient's age to complete this topic Meningococcal B Vaccine Aged Out No l onger eligible based on patient's age to complete this topic Pneumococcal Vaccine: Pediatrics (0 to 5 Years) and At-Risk Patients (6 to 49 Years) Aged Out No longer eligible based on patient's age to complete this topic RSV Immunization Patients Under 20 months Aged Out No longer eligible based on patient's age to complete this topic Varicella Vaccines Aged Out No longer eligible based on patient's age to complete this topic Insurance [employer] MEDICARE Member Subscriber Plan / Payer (Ef fective 2019-Present) Name:Veronica Tellez Relation to Subscriber:Self Name:Veronica Tellez Payer ID:[id number] Group ID:[id number] Type:Not on file Address: [place] [address] [address] [phone] Care Teams Biofuels Plant Construction Worker Relationship Specialty Start Date End Date Fabiana Mercer MD [address] [facility] [address] CHOLO Arellano PCP - General Internal Medicine 11/21/24
== END 2025-05-10 09:48 | disposition home or self-care (01) ==
LOC: HO.HUSH 09:17
PROVIDERS: PCP Internal Medicine; Visit Provider Nurse Practitioner Family
DX: Z13.9 Encounter for screening, unspecified (principal); N20.0 Calculus of kidney
CPT/HCPCS: 99213

== ENCOUNTER → 2025-05-10 09:17 | Outpatient (BNVA) | payer OTHER, SELFPAY | PROVIDERS: PCP Internal Medicine; Visit Provider Nurse Practitioner Family | DX: N20.0 Calculus of kidney (principal) | CPT/HCPCS: 81003; 99212 ==

== ENCOUNTER 2025-06-05 13:55 | Outpatient (AMB) | payer OTHER, SELFPAY ==
--- OUTSIDE RECORDS SUMMARY | 2025-06-05 15:14 | XMS_ITS | Clinical Summary ---
Author Organization [facility] Address [address] [place] [address] Phone Care Team Providers Care Gymnastics Coach Or Instructor Name Role Phone Fabiana Mercer MD Primary Care Provider Allergies No known active allergies Medications busPIRone (BUSPAR) 15 MG tablet Take 1 tablet by mouth every morning. 08/31/20 23 Active betamethasone, augmented, (DIPROLENE AF) 0.05 % cream Apply topically 2 (two) times a day. 09/13/20 23 Active DULoxetine (CYMBALTA) 60 MG capsule Take 1 capsule by mouth every morning. 08/31/20 23 Active tacrolimus (PROTOPIC) 0.1 % ointment Apply topically 2 (two) times a day. 09/13/20 23 Active triamcinolone acetonide 0.5 % cream Apply topically 2 (two) times a day. 08/04/20 23 Active zolpidem (AMBIEN) 10 mg tablet Take 1 tablet by mouth nightly at bedtime as needed. 09/21/20 23 Active butalbital-acetami nophen-caffeine (FIORICET, ESGIC) 50-325-40 mg per tablet Take 1 tablet by mouth. 02/25/20 24 Active SUMAtriptan (IMITREX) 100 MG tablet Take 100 mg by mouth once as needed. 02/24/20 24 Active tolterodine (DETROL LA) 4 MG 24 hr capsule Take 1 capsule by mouth every morning. 02/25/20 24 Active predniSONE (DELTASONE) 5 MG tabletIndications: Systemic lupus erythematosus, unspecified SLE type, unspecified organ involvement status,Long-term use of Plaquenil,MCFP 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 Take 1 tablet (5 mg total) by mouth daily as needed (for flares). 30 tablet 3 12/22/19 25 Active hydroxychloroquine (PLAQUENIL) 200 mg tabletIndications: Systemic lupus erythematosus, unspecified SLE type, unspecified organ involvement status Take 1 tablet (200 mg total) by mouth 2 (two) times a day. 180 tablet 3 03/28/20 25 Active NIFEdipine (ADALAT CC) 60 MG 24 hr tabletIndications: Raynaud's phenomenon without gangrene Take 1 tablet (60 mg total) by mouth daily. 90 tablet 3 03/28/20 25 Active tiZANidine (ZANAFLEX) 2 MG tabletIndications: Primary osteoarthritis involving multiple joints,Spasm of muscle Take 1 tablet (2 mg total) by mouth 2 (two) times a day. 60 tablet 1 05/23/20 25 Active calcium carbonate-vitamin D3 1500 mg (600 mg elemental)-400 units per tablet Take 1 tablet by mouth 2 (two) times a day. 180 tablet 06/01/20 25 Active calcium carbonate-vitamin D3 1500 mg (600 mg elemental)-400 units per tablet TAKE 1 TABLET BY MOUTH TWO TIMES A DAY 180 tablet 02/21/20 25 025 Discontin ued(Reord er) Active Problems Problem Noted Date Diagnosed Date [...] 2024 revealed no signs of Plaquenil toxicity. MCFP 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 12/21 Assessment [...] next visit in 4 months-standing orders in [facility]. Carefully continue Plaquenil (hydroxychloroquine) 200 mg [...] (12/21/2024 10:53 PM EST): Clinically and laboratory glass appears stable as of most recent lab [...] Encounters Date Type Department Care Team Description 06/01/2025 Refill [facility] Rheumatology [address] [place] [address] Shobha Dozier MD Medication Refill 05/23/2025 Orders Only [facility] [address] [place] [address] Shobha Dozier MD Muscle spasms of both lower extremities (Primary Dx); Primary osteoarthritis involving multiple joints; Spasm of muscle 05/23/2025 Telephone [facility]ology [address] [place] [address] Shobha Dozier MD Medication Refill 05/23/2025 Refill [facility] [address] [place] [address] Shobha Dozier MD Medication Refill 03/28/2025 11:21 AM EDT - 03/28/2025 11:59 PM EDT Hospital Encounter [facility] [address] [place] [address] Shobha Dozier MD Discharge Disposition: Home or Self Care 03/28/2025 10:30 AM EDT Office Visit [facility] Rheumatology [address] [place] [address] [place] [address] Shobha Dozier MD Systemic lupus erythematosus, unspecified SLE type, unspecified organ involvement status (Primary Dx); Primary osteoarthritis involving multiple joints; Raynaud's phenomenon without gangrene; Long-term use of Plaquenil; On selective serotonin reuptake inhibitor (SSRI) therapy; extermination inspector 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; Primary insomnia from Last 3 Months Social History Tobacco [...] 03/28/2025 10:41 AM EDT Plan of Treatment Upcoming Encounters Date Type Department Care Team (Late st Contact Info) Description 08/06/2025 2:00 PM EDT Office Visit [facility] Rheumatology [address] [place] [address] Shobha Dozier MD [address] [place] [address], [address] [place] [address] [email or web address] Health Maintenance Due Date Last Done Comments [...] organ involvement status Long-term use of Plaquenil MCFP 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 C-REACTIVE PROTEIN Routine 03/28/2025 11 :22 AM EDT Systemic lupus erythematosus, unspecified SLE type, unspecified organ involvement status Long-term use of Plaquenil extermination inspector 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 SEDIMENTATION RATE (ESR) Routine 03/28/2025 11:22 AM EDT Systemic lupus erythematosus, unspecified SLE type, unspecified organ involvement status Long-term use of Plaquenil MCFP 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 CBC AND DIFFERENTIAL Routine 03/28/2025 11:22 AM EDT Systemic lupus erythematosus, unspecified SLE type, unspecified organ involvement status Long-term use of Plaquenil MCFP 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 COMPLEMENT C3 Routine 03/28/2025 11:22 AM EDT Systemic lupus erythematosus, unspecified SLE type, unspecified organ involvement status Long-term use of Plaquenil extermination inspector 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 COMPLEMENT C4 Routine 03/28/2025 11:22 AM EDT Systemic lupus erythematosus, unspecified SLE type, unspecified organ involvement status Long-term use of Plaquenil extermination inspector 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 CPK (CREATINE KINASE) Routine 03/28/2025 11:22 AM EDT Systemic lupus erythematosus, unspecified SLE type, unspecified organ involvement status Long-term use of Plaquenil MCFP 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 DOUBLE STRANDED DNA ANTIBODIES Routine 03/28/2025 11:22 AM EDT Systemic lupus erythematosus, unspecified SLE type, unspecified organ involvement status Long-term use of Plaquenil extermination inspector 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 from Last 3 Months Results * Comprehensive metabolic panel (03/28/2025 11:22 AM EDT) SODIUM 140 133 - 146 mmol/L [facility] POTASSIUM 4.5 3.3 - 5.1 mmol/L [facility] CHLORIDE 107 96 - 108 mmol/L [facility] CO2 23 21 - 35 mmol/L [facility] BUN 9 6 - 19 mg/dL [facility] CREATININE 0.60 0.5 - 1.5 mg/dL [facility] GLUCOSE 87 70 - 99 mg/dL [facility] ALBUMIN 4.2 3.9 - 4.8 g/dL [facility] TOTAL PROTEIN 7.6 6.5 - 8.0 g/dL [facility] CALCIUM 9.5 8.4 - 10.3 mg/dL [facility] ALKALINE PHOSPHATASE 85 39 - 117 U/L [facility] TOTAL BILIRUBIN 0.4 0.0 - 1.2 mg/dL [facility] AST 29 0 - 37 U/L [facility] ALT 13 0 - 40 U/L [facility] GLOBULIN 3.4 1 - 4.8 g/dL [facility] EGFR 120 >59 mL/min/1.7 3m2 [facility] Comment:Estimated glomerular filtration rate calculated using the CKD-EPI refit equation. ANION GAP 15 10 - 20 mmol/L [facility] Blood 03/28/2025 11:2 2 AM EDT 03/28/2025 11:27 AM EDT us Shobha Dozier MD LAB BLOOD ORDERABLES Fin al Result [facility] [address] [place], [place] [id number] * Double stranded DNA antibodies (03/28/2025 11:22 AM EDT) ANTI DSDNA ANTIBODY POSITIVE AT 1:40 [facility] Comment: Performing Pathologist, Toni Willett M.D., Ph.D. [id number] Normal: Negative at 1:10 Anti-cachil dehe DNA Antibodies detected on Crithidia luciliae substrate. [...] other rheumatic diseases or in drug-induced SLE. Pwrk-xqqows-jrzfjjss DNA antibodies are usually detected in SLE [...] MD LAB BLOOD ORDERABLES Fin al Result [address] [address] * Sedimentation rate (ESR) (03/28/2025 11:22 AM EDT) ESR 16 0 - 20 mm/h [facility] Blood 03/28/2025 11:2 2 AM EDT 03/28/2025 11:27 AM EDT Shobha Dozier MD LAB BLOOD ORDERABLES Fin al Result [facility] [address] [place] [address] * (ABNORMAL) CBC and differential (03/28/2025 11:22 AM EDT) WBC 2.89(L) 4.00 - 11.00 K/uL [facility] RBC 4.61 4.00 - 5.20 M/uL [facility] HGB 11.9(L) 12.0 - 16.0 g/dL [facility] HCT 38.5 36.0 - 46.0 % [facility] PLT 223 150 - 450 K/uL [facility] MCV 83.5 80.0 - 100.0 fL [facility] MCH 25.8(L) 27.0 - 31.0 pg [facility] MCHC 30.9(L) 32.0 - 36.0 g/dL [facility] RDW 16.7(H) 11.5 - 14.5 % [facility] MPV 11.3 8.4 - 12.0 fL [facility] NRBC 0.00 0.00 /100 WBCs [facility] ABSOLUTE NRBC 0.00 0.00 K/uL [facility] DIFF METHOD Auto [facility] NEUTS 46.8(L) 48.0 - 76.0 % [facility] LYMPHS 40.1 18.0 - 41.0 % [facility] Comment: Few Atypical Lymphs MONOS 12.1(H) 4.0 - 11.0 % [facility] EOS 0.7 0.0 - 5.0 % [facility] BASOS 0.3 0.0 - 1.5 % [facility] Granulocytes, immature (%) 0.0 0.0 - 0.9 % [facility] ABSOLUTE NEUTS 1.35(L) 1.92 - 7.60 K/uL [facility] ABSOLUTE LYMPHS 1.16 0.72 - 4.10 K/uL [facility] ABSOLUTE MONOS 0.35 0.16 - 1.10 K/uL [facility] ABSOLUTE EOS 0.02 0.00 - 0.50 K/uL [facility] ABSOLUTE BASOS 0.01 0.00 - 0.15 K/uL [facility] Granulocytes, immature 0.00 0.00 - 0.09 K/uL [facility] Blood 03/28/2025 11:2 2 AM EDT 03/28/2025 11:27 AM EDT us Shobha Dozier MD LAB BLOOD ORDERABLES Fin al Result [address] [address] * (ABNORMAL) Complement C3 (03/28/2025 11:22 AM EDT) C3 37(L) 81 - 157 mg/dl [facility] Blood 03/28/2025 11:2 2 AM EDT 03/28/2025 11:27 AM EDT us Shobha Dozier MD LAB BLOOD ORDERABLES Fin al Result Performing Organization Address City/[facility]/ZIP Co de Phone Number [address] [address] * (ABNORMAL) Complement C4 (03/28/2025 11:22 AM EDT) C4 <6(L) 12 - 39 mg/dL [facility] Comment:Result checked Blood 03/28/2025 11:2 2 AM EDT 03/28/2025 11:27 AM EDT us Shobha Dozier MD LAB BLOOD ORDERABLES Fin al Result Performing Organization Address City/[facility]/ZIP Co de Phone Number [address] [address] * C-Reactive Protein (03/28/2025 11:22 AM EDT) C REACTIVE PROTEIN <3.0 0.0 - 4.0 mg/L [facility] Blood 03/28/2025 11:2 2 AM EDT 03/28/2025 11:27 AM EDT us Shobha Dozier MD LAB BLOOD ORDERABLES Fin al Result Performing Organization Address City/[facility]/ZIP Co de Phone Number [address] [address] * CPK (creatine kinase) (03/28/2025 11:22 AM EDT) CREATINE KINASE 209 21 - 215 U/L [facility] Blood 03/28/2025 11:2 2 AM EDT 03/28/2025 11:27 AM EDT us Shobha Dozier MD LAB BLOOD ORDERABLES Fin al Result [address] [address] from Last 3 Months Insurance MEDICARE REPLACEMENT [place] [id number] MEDICARE REPLACEMENT [place] [id number] CARE MEDICARE REPLACEMENT [facility] ONE CARE MEDICARE REPLACEMENT [place] [id number] Care Teams Gymnastics Coach Or Instructor Relationship Specialty Start Date End Date Fabiana Mercer MD [address] [place] [address] [place] [address] PCP - General Internal Medicine 09/07/23 Additional Source Comments The information contained in this document represents components of the legal health record. It is not the complete legal health record.[facility]
--- OUTSIDE RECORDS SUMMARY | 2025-06-05 15:14 | XMS_ITS | Clinical Summary ---
Author Organization 175 [facility] Address [address] [place] [address] Phone Care Team Providers Care Optical Laboratory Manager Name Role Phone Fabiana Mercer MD Primary Care Provider [phone] Allergies No known active allergies Medications hydroxychloroq [...] 7 (seven) days. 2 mL 5 025 Discontinued Zepbound 10 mg/0.5 mL injection INJECT 10 MG (0.5 ML) UNDER THE SKIN ONCE EVERY 7 DAYS 2 mL 025 Discontinued Encounters Date Type Department Care Team Description 06/05/2025 Telephone Bariatric Surgery [address] [phone] Patrica Reid MD Med Refill (Zepbound) 04/18/2025 Telephone Bariatric Surgery [address] [phone] Patrica Reid MD Med Refill (Zepbound w/titration ) 04/06/2025 Telephone Bariatric Surgery [address] [phone] Patrica Reid MD Med Refill (Zepbound) 03/15/2025 [facility]inebar Bariatric Surgery [address] [phone] Patrica Reid MD Med Refill (Zepbound) from Last 3 Months Social History Tobacco [...] Encounters Date Type Department Care Team (Late Contact Info) Description 08/16/2025 9:15 AM EDT Office Visit Bariatric Surgery [address] [phone] Patrica Reid MD 175 [facility] [address] [place] [address] Health Maintenance Due Date Last Done Comments [...] Vaccine (#1) 2025 HIB Vaccines Completed 03/18/1992, 06/2 02/1991, 1990 IPV Vaccines Completed 03/18/1995, 10/1991, 1990, [...] ID:[id number] Group ID:[id number] Type:Not on file Address: [place] [address] [address] [phone] Care Teams Optical Laboratory Manager Relationship Specialty Start Date End Date Fabiana Mercer MD [address] [facility] [address] [place] PCP - General Internal Medicine 11/21/24
== END 2025-06-05 14:03 | disposition home or self-care (01) ==
LOC: HO.HMGAL 13:55
PROVIDERS: PCP Internal Medicine; Visit Provider Registered Nurse Emergency
DX: J30.89 Other allergic rhinitis (principal)
CPT/HCPCS: 95117; 95165

== ENCOUNTER 2025-08-13 12:38 | Outpatient (AMB) | payer OTHER, SELFPAY ==
--- OUTSIDE RECORDS SUMMARY | 2025-08-13 16:03 | XMS_ITS | Clinical Summary ---
Author Organization 175 [facility] Address [address] [place] [address] Phone Care Team Providers Care Terrazzo Roller Name Role Phone Fabiana Mercer MD Primary Care Provider Allergies No known active allergies Medications hydroxychloroq [...] mouth 1 (one) time each day. Active DULoxetine (CYMBALTA) [address] capsule Take 1 capsule (60 mg total) by mouth 1 (one) time each day. Active calcium carbonate-nicolás min D 600 mg-10 mcg (400 unit) per tablet Take 1 tablet by mouth 2 (two) times a day. Active butalbital-marco taminophen-caf feine (FIORICET, ESGIC) 50-325-40 mg per tablet Take 1 tablet by mouth if needed. Active Zepbound 15 mg/0.5 mL injection INJECT 0.5ML (15MG) UNDER THE SKIN EVERY 7 DAYS 2 mL Active tirzepatide, weight loss, (Zepbound) 15 mg/0.5 mL injection Inject 0.5 mL (15 mg total) under the skin every 7 (seven) days. 2 mL 09 025 Discontinued Encounters Date Type Department Care Team Description 06/05/2025 Telephone Bariatric Surgery [facility] 175 [facility] [address] [place] [phone] Patrica Reid MD from Last 3 Months Social History Tobacco [...] 9:15 AM EDT Office Visit Bariatric Surgery [facility] [address] [phone] Patrica Reid MD [address] [place] [phone] Health Maintenance Due Date Last Done Comments Hepatitis B Vaccines (4 of 4 - 4-dose series) 12/25/2002 10/31/2002, 10/30/2002, 02/16/2002 HPV Vaccines (2 - 3-dose series) 04/03/2008 03/06/2008 Cervical Cancer Screening: Pap Smear 2011 DTaP,Tdap,and Td Vaccines (7 - Td or Tdap) 02/17/2012 02/16/2002, 03/18/1995, 03/18/1992, Additional history exists Depression Screening 10/18/2024 HIV Screening 11/21/2024 Hepatitis C Screening 11/21/2024 Medicare Annual Wellness Visit 11/21/2024 Social Influencers of Health Screening 11/21/2024 COVID-19 Vaccine ( season) 2025 08/01/2021, 06/17/2021 Influenza Vaccine (#1) 2025 RSV Immunization Adult Patients (1 - 1-dose 75+ series) 2065 HIB Vaccines Completed 03/18/1992, 2 02/1991, 1990 IPV Vaccines Completed 03/18/1995, 06/0 10/1991, 1990, Additional history exists MMR Vaccines [...] Subscriber Plan / Payer (Ef fective 2019-Present) Name:SHAHRZAD CONN Relation to Subscriber:Self Name:Shahrzad Conn Payer ID:[id number] Group ID:[id number] Type:Not on file Address: [place] [facility] [place] [phone] Care Teams Terrazzo Roller Relationship Specialty Start Date End Date Fabiana Mercer MD [address] [facility] [address] [place] PCP - General Internal Medicine 11/21/24
--- OUTSIDE RECORDS SUMMARY | 2025-08-13 16:03 | XMS_ITS | Clinical Summary ---
Author Organization [facility] Address [address] [place] [address] Phone Care Team Providers Care Criminology Professor Name Role Phone Unavailable Primary Care Provider [...] Vaccines (2 - 3-dose series) 04/03/2008 03/06/2008 Influenza Vaccines (#1) 2025 COVID-19 Vaccine ( - 2024- season) 2025 HIB Vaccines Completed 03/18/1992, 03/19, 1990 [...]
--- OUTSIDE RECORDS SUMMARY | 2025-08-13 16:03 | XMS_ITS | Encounter Summary ---
Author Organization [facility] Address [address] [place] [address] Phone Care Team Providers Care Quarter Trimmer Name Role Phone Unavailable Primary Care Provider Unavailabl e Encounter Details Date Type Department Care Team (Late st Contact Info) Description 08/19/2017 Conversion Encounter [facility] - [address] [address] Social History Tobacco Use Types Packs/Day Years Used Date Smoking Tobacco: Never Assessed Comments Unknown Sex and Gender Information Value Date Recorded Sex Assigned at Not on file Legal Sex Female 4:26 PM EDT Gender Identity Not on file Sexual Orientation Not on file documented as of this encounter Plan of Treatment Not on file documented as of this encounter Visit Diagnoses Not on filedocumented in this encounter
--- OUTSIDE RECORDS SUMMARY | 2025-08-13 16:03 | XMS_ITS | Encounter Summary ---
Author Organization [facility] Address [address] [place] [address] [address] [place] [address] Phone Care Team Providers Care Behavioral Health Care Coordinator Name Role Phone Fabiana Mercer MD Primary Care Provider Reason for Visit * Reason Comments Medication Refill Encounter Details Date Type Department Care Team (Late Contact Info) Description 05/23/2025 Refill [facility] [address] [place] [address] Shobha Dozier MD [address] [facility], [address] [place] [address] [email or web address] Medication Refill Social History Tobacco Use Types Packs/Day Years Used Date Smoking Tobacco: Never Smokeless Tobacco: Never Alcohol Use Standard Drinks/Week Comments Not Currently [...] as of this encounter Plan of Treatment Upcoming Encounters Date Type Department Care Team (Late Contact Info) Description 12/10/2025 10:30 AM EST Office Visit [facility] [place] [address] Shobha Dozier MD [address] [facility], [address] [place] [address] [email or web address] documented as of this encounter Visit Diagnoses Not on filedocumented in this encounter Care Teams Behavioral Health Care Coordinator Relationship Specialty Start Date End Date Fabiana Mercer MD [address] [place] [address] [facility] [place] [phone] PCP - General Internal Medicine 09/07/23 documented as of this encounter Additional Source Comments The information contained in this document represents components of the legal health record. It is not the complete legal health record.[facility]
== END 2025-08-13 12:41 | disposition home or self-care (01) ==
LOC: HO.HMGAL 12:38
PROVIDERS: PCP Internal Medicine; Visit Provider Registered Nurse Emergency
DX: J30.89 Other allergic rhinitis (principal)
CPT/HCPCS: 95117; 95165

== ENCOUNTER 2025-09-17 13:25 | Outpatient (AMB) | payer OTHER, SELFPAY ==
--- NOTE | 2025-09-17 13:30 | MHC.OFFVIS ---
Intake Visit Reasons: follow up Allergies No Known Allergies Allergy (Verified 09/17/25 13:33) Medication List - Last Reconciled 09/17/25 by Arabella Randolph CNP acetaminophen ER (Tylenol 8 Hour) 650 mg PO Q12H buspirone 15 mg PO BID shzffmrmkn-quzjdocczdywn-wlrm 50-325-40 mg 2 tabs PO DAILY PRN 30 days cetirizine (Zyrtec) 10 mg PO DAILY PRN duloxetine 60 mg PO DAILY fluticasone propionate 50 mcg/actuation 1 spray intranasal DAILY hydroxychloroquine (Plaquenil) 200 mg PO DAILY metoclopramide HCl (Reglan) 10 mg PO Q6H PRN nifedipine ER 60 mg PO DAILY olopatadine 0.1% 1 drp ophthalmic (eye) BID prednisone 40 mg (2 x 20 mg) PO DAILY 5 days sumatriptan succinate take 1 tab at onset of headache; if no relief, may repeat 1 tab after at least 2 hrs; max = 2 tabs/24 hrs PO 30 days triamcinolone acetonide 0.5% 1 appl topical BID zolpidem (Ambien) 10 mg PO BEDTIME PRN HPI Comments Details: 35-year-old woman with SLE and migraine. She was doing okay. Headaches were happening about once a week. She was using butalbital as needed which helped. She was sometimes using sumatriptan, but butalbital seemed to work better and sumatriptan made her tired. Stress could trigger headaches. Mood was okay. Sleep was okay.? [facility] Medical History (Updated 09/17/25 @ 13:33 by Arabella Randolph CNP) SLE (systemic lupus erythematosus related syndrome) Hx of herpes zoster Depression Arthritis Surgical History Hx of vaginal surgery Review of Systems Const Denies chills, Denies daytime sleepiness, Denies difficulty sleeping, Denies fatigue, Denies fever(s), Denies frequent falls, Reports headache(s), Denies increased appetite, Denies poor appetite, Denies snoring, Denies weakness, Denies weight gain and Denies weight loss Eyes Denies loss of vision ENT Denies vertigo, Denies dizziness and Reports headache(s) Card Denies chest pain at rest, Denies chest pain with activity, Denies syncope, Denies leg edema and Denies palpitations Resp Denies snoring GI Denies constipation, Denies heartburn, Denies diarrhea and Denies nausea Denies urinary frequency, Denies urinary incontinence and Denies urinary urgency Musc Denies abnormal gait, Denies numbness and Denies tingling Skin/Breast Denies dry skin and Denies rash Neuro Denies abnormal gait, Denies vertigo, Denies dizziness, Denies syncope, Denies frequent falls, Reports headache(s), Denies lack of coordination, Denies loss of vision, Denies memory loss, Denies numbness, Denies restless legs, Denies seizure-like activity, Denies tingling, Denies paresthesias, Denies tremor(s) and Denies weakness Psych Denies anxiety, Denies depression, Denies auditory hallucinations, Denies memory loss, Denies visual hallucinations and Denies suicidal ideation Endo Denies fatigue and Denies palpitations Physical Exam Const Other: General Appearance:? normal, in no acute distress. Skin:? no rashes, no significant birthmarks. Heart:? S1, S2 normal, no murmurs. Lungs:? clear anteriorly and posteriorly. Extremities:? no edema. Psych:? alert, oriented, cognitive function intact, cooperative with exam. Neuro Other: Mental Status:?Normal attention, orientation, memory and affect.? Cranial Nerves:?Pupils are equal, round and reactive to light. External occular muscles are intact. Visual [place] are full. Face is symmetrical. Facial sensations are normal. Tongue is midline. Palate elevates symmetrically. Shoulder shrugging is normal. Hearing to bedside conversation is normal. Sensory Exam:?....? Coordination:?No ataxia,?no titubation.? Gait Exam: Within normal limits. Cerebellar Signs:?Pieshy-cv-orbs is okay. Extrapyramidal System:?No tremor, rigidity with normal facial expressions.? Pronator Drift:?Not present.? Involuntary Movements:?No tremors seen.? Speech:?Normal.? Results Reviewed Results Reviewed: [place] [facility] [place]: R max sinus disease, brain ok CT [place] [facility] [place]: WNL. Assessment & Plan Assessment & Plan (1) Migraine: Code(s): G43.909 - Migraine, unspecified, not intractable, without status migrainosus Category: Medical Qualifiers: Intractability: not intractable Migraine type: without aura Status migrainosus presence: without status migrainosus Qualified Code(s): G43.009 - Migraine without aura, not intractable, without status migrainosus Plan: Continue wrquvgnxcv-VVIC-qqpi 50-325-40mg 2 tablets as needed for headache #10 for 30 days. Continue sumatriptan 100mg 1 tablet as needed for migraine. Follow up in 6 months or sooner as needed. Plan Meds tried: amitriptyline, sumatriptan, butalbital Medications: Refilled prinhikwvc-dvpvcflpnlwvw-ytmd 50-325-40 mg 2 tabs PO DAILY PRN 10 tabs 5RF headache 30 days sumatriptan succinate take 1 tab at onset of headache; if no relief, may repeat 1 tab after at least 2 hrs; max = 2 tabs/24 hrs PO 10 tabs 5RF 30 days Coding Level of Care Code Est Pt Level 4 (39618) Diagnoses Migraine G43.009 Intractability: not intractable Migraine type: without aura Status migrainosus presence: without status migrainosus
--- OUTSIDE RECORDS SUMMARY | 2025-09-17 16:59 | XMS_ITS | Encounter Summary ---
Author Organization [facility] Address [address] [place] [phone] Phone Care Team Providers Care Circuit Court Clerk Name Role Phone Unavailable Primary Care Provider Unavailabl e Encounter Details Date Type Department Care Team (Late st Contact Info) Description 08/19/2017 Conversion Encounter [facility] - [address] [address] Social History Tobacco Use Types Packs/Day Years [...]
--- OUTSIDE RECORDS SUMMARY | 2025-09-17 16:59 | XMS_ITS | Clinical Summary ---
Author Organization [facility] Address [address] [place] [address] Phone Care Team Providers Care Sample Puller Name Role Phone Unavailable Primary Care Provider [...]
--- OUTSIDE RECORDS SUMMARY | 2025-09-17 17:00 | XMS_ITS | Clinical Summary ---
Author Organization [facility] Address [address] [place] [phone] Phone Care Team Providers Care Document Review Attorney Name Role Phone Fabiana Mercer MD Primary [...] at bedtime as needed. 09/21/20 23 Active butalbital-acetam inophen-caffeine (FIORICET, ESGIC) 50-325-40 mg per tablet Take 1 tablet by mouth. 02/25/20 24 Active SUMAtriptan (IMITREX) 100 MG tablet Take 100 mg by mouth once as needed. 02/24/20 24 Active hydroxychloroquin e (PLAQUENIL) 200 mg tabletIndications :Systemic lupus erythematosus, unspecified SLE type, unspecified organ involvement status Take 1 tablet (200 mg total) by mouth 2 (two) times a day. 180 tablet 3 03/28/20 25 Active NIFEdipine (ADALAT CC) 60 MG 24 hr tabletIndications :Raynaud's phenomenon without gangrene Take 1 tablet (60 mg total) by mouth daily. 90 tablet 3 03/28/20 25 Active ZEPBOUND 15 mg/0.5 mL subcutaneous pen Inject 15 mg under the skin once a week. 07/11/20 25 Active tiZANidine (ZANAFLEX) 2 MG tabletIndications :Primary osteoarthritis involving multiple joints,Spasm of muscle Take 1 tablet (2 mg total) by mouth 2 (two) times a day. 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 30 tablet 3 12/22/19 25 025 Discontinued calcium carbonate-vitamin D3 1500 mg (600 mg elemental)-400 units per tablet Take 1 tablet by mouth 2 (two) times a day. 180 tablet 06/01/20 25 025 Discontinued Active Problems Problem Noted Date Diagnosed Date Cold sensitivity 08/06/2025 Spasm of muscle 08/06/2025 Assessment & Plan (08/06/2025 2:50 PM EDT): Use warm pack versus warm shower prior to gentle, regular ROM, stretching and muscle strengthening exercises. Long-term use of Plaquenil 12/21/2024 Assessment & Plan (08/06/2025 2:14 PM EDT): Continue daily sun protection and regular ophthalmology checkups at least every 12 months-most recent in September 2024 revealed no signs of Plaquenil toxicity. Assessment & Plan (03/28/2025 10:57 AM EDT): Continue daily sun protection and regular ophthalmology checkups at least every 12 months-most recent in September 2024 revealed no signs of Plaquenil toxicity. Assessment & Plan (12/21/2024 10:58 PM EST): Continue daily sun protection and regular ophthalmology checkups at least every 12 months-most recent in September 2024 revealed no signs of Plaquenil toxicity. 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 Assessment & Plan (03/28/2025 10:58 AM EDT): [...] inhibitor (SSRI) therapy 12/21/2024 Assessment & Plan (08/06/2025 2:14 PM EDT): Monitor for mood swings, increased muscle rigidity and temperature intolerance. Assessment & Plan (03/28/2025 10:58 AM EDT): Monitor for mood swings, increased muscle rigidity and temperature intolerance. Assessment & Plan (02/04/2025 10:57 PM EDT): Monitor for mood swings, increased muscle rigidity and temperature intolerance. Assessment & Plan (12/21/2024 10:57 PM EST): Monitor for mood swings, increased muscle rigidity and temperature intolerance. Primary insomnia 12/21/2024 Assessment & Plan (08/06/2025 2:14 PM EDT): Since she takes Ambien nightly [...] formal sleep specialist evaluation. Assessment & Plan (03/28/2025 10:58 AM EDT): [...] Systemic lupus erythematosus 11/11/2023 Assessment & Plan (08/06/2025 2:49 PM EDT): Clinically and laboratory glass appears stable as of most recent lab work from 03/28/2025 except for mild leukopenia and hypocomplementemia. She is up-to-date on ophthalmologic checkups as of September 2024. New set of lab work requested today and prior to next visit in 4 months-standing orders in [facility]. Carefully continue Plaquenil (hydroxychloroquine) 200 mg twice daily, use daily sun protection all year-round. Continue well-balanced nutritionally diet, proper hydration and gentle, regular exercise. Avoid falls, injuries, overuse and sick contacts. Assessment & Plan (03/28/2025 11:26 AM EDT): Clinically and laboratory glass appears stable as of most recent lab work from 11/22/2024 except for mild leukopenia and hypocomplementemia. She is up-to-date on ophthalmologic checkups as of September 2024. New set of lab work requested today and prior to next visit in 4 months-standing orders in [facility]. Carefully continue Plaquenil (hydroxychloroquine) 200 mg twice daily, use daily sun protection all year-round. Continue well-balanced nutritionally diet, proper hydration and gentle, regular exercise. Avoid falls, injuries, overuse and sick contacts. Assessment & Plan (02/04/2025 10:57 PM EDT): Clinically and laboratory glass appears stable as [...] phenomenon without gangrene 11/11/2023 Assessment & Plan (08/06/2025 2:14 PM EDT): Keep warm, dress in layers. Optimize stress management strategies. Avoid vasoconstrictors in OTC products for cold/flu and sinus. Carefully continue oral daily nifedipine ER Assessment & Plan (03/28/2025 10:57 AM EDT): [...] involving multiple joints 11/11/2023 Assessment & Plan (08/06/2025 2:14 PM EDT): Continue joint protection, energy conservation. [...] times daily as needed. Assessment & Plan (03/28/2025 10:57 AM EDT): [...] Encounters Date Type Department Care Team Description 08/21/2025 Refill [facility] Rheumatology [address] [place] [address] [place] [address] Shobha Dozier MD Medication Refill 08/06/2025 2:37 PM EDT - 08/06/2025 11:59 PM EDT Hospital Encounter [facility] [address] [place] [address] Shobha Dozier MD Discharge Disposition: Home or Self Care 08/06/2025 2:00 PM EDT Office Visit [facility] Rheumatology [address] [place] [address] [place] [address] Shobha Dozier MD Systemic lupus erythematosus, unspecified SLE type, unspecified organ involvement status (Primary Dx); Primary osteoarthritis involving multiple joints; Raynaud's phenomenon without gangrene; Long-term use of Plaquenil; On selective serotonin reuptake inhibitor (SSRI) therapy; 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; Primary insomnia; Spasm of muscle; Cold sensitivity from Last 3 Months Social History Tobacco [...] Sign Reading Time Taken Comments Blood Pressure 108/68 08/06/2025 1:59 PM EDT Pulse 90 03/28/2025 10:41 AM EDT Temperature - - Respiratory Rate - - Oxygen Saturation 97% 03/28/2025 10:41 AM EDT Inhaled Oxygen Concentration - - Weight 57.6 kg (127 lb) 08/06/2025 1:59 PM EDT Height 167.6 cm (5' 6 ) 08/06/2025 1:59 PM EDT Body Mass Index 20.5 08/06/2025 1:59 PM EDT Plan of Treatment Upcoming Encounters Date Type Department Care Team (Late st Contact Info) Description 12/10/2025 10:30 AM EST Office Visit [facility] [place] [address] Shobha Dozier MD [address] [facility], [address] [place] [address] Health Maintenance Due Date Last Done Comments Adult Td,Tdap Booster 1990 DEPRESSION SCREENING 2002 HEPATITIS C SCREENING 01/13/2008 HIV ONE-TIME SCREENING (18-6 5 YEARS) 01/13/2008 PAP SMEAR 2011 INFLUENZA VACCINE (#1) 2025 COVID-19 VACCINE (2024-2 6 season) 2025 SMOKING STATUS SCREENING (On ce After 26 Yrs) Completed 08/06/2025 HEPATITIS A VACCINES Aged Out No long [...] Procedure Name Priority Date/Time Associated Diagnosis Comments TSH WITH REFLEX Routine 08/06/2025 2:39 PM EDT Cold sensitivity COMPREHENSIVE METABOLIC PANEL (CMP) Routine 08/06/2025 2:39 PM EDT Systemic lupus erythematosus, unspecified SLE type, unspecified organ involvement status Long-term use of Plaquenil [facility] 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 C-REACTIVE PROTEIN (CRP) Routine 08/06/2025 2:39 PM EDT Systemic lupus erythematosus, unspecified SLE type, unspecified organ involvement status Long-term use of Plaquenil 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 SEDIMENTATION RATE (ESR) Routine 08/06/2025 2:39 PM EDT Systemic lupus erythematosus, unspecified SLE type, unspecified organ involvement status Long-term use of Plaquenil [facility] 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 CBC AND DIFFERENTIAL Routine 08/06/2025 2:39 PM EDT Systemic lupus erythematosus, unspecified SLE type, unspecified organ involvement status Long-term use of Plaquenil 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 COMPLEMENT C3 Routine 08/06/2025 2:39 PM EDT Systemic lupus erythematosus, unspecified SLE type, unspecified organ involvement status Long-term use of Plaquenil 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 COMPLEMENT C4 Routine 08/06/2025 2:39 PM EDT Systemic lupus erythematosus, unspecified SLE type, unspecified organ involvement status Long-term use of Plaquenil pen[facility]entiary 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 CREATINE KINASE (CK) Routine 08/06/2025 2:39 PM EDT Systemic lupus erythematosus, unspecified SLE type, unspecified organ involvement status Long-term use of Plaquenil penitentiary 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 DOUBLE STRANDED DNA ANTIBODIES Routine 08/06/2025 2:39 PM EDT Systemic lupus erythematosus, unspecified SLE type, unspecified organ involvement status Long-term use of Plaquenil 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 TOTAL PROTEIN CREATININE RATIO, RANDOM URINE Routine 08/06/2025 2:39 PM EDT Systemic lupus erythematosus, unspecified SLE type, unspecified organ involvement status Long-term use of Plaquenil 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 from Last 3 Months Results * TOTAL PROTEIN CREATININE RATIO, RANDOM URINE (08/06/2025 2:39 PM EDT) URINE TOTAL PROTEIN 20.0 mg/dL [facility] URINE CREATININE 265 mg/dL [facility] URINE TP CRE RATIO 0.08 0 - 0.19 [facility] Urine (Urine) 08/06/2025 2:3 9 PM EDT 08/06/2025 2:49 PM EDT us Shobha Dozier MD LAB URINE ORDERABLES Fin al Result [facility] [address] [place] [address] * Comprehensive metabolic panel (08/06/2025 2:39 PM EDT) SODIUM 141 133 - 146 mmol/L [facility] POTASSIUM 4.1 3.3 - 5.1 mmol/L [facility] CHLORIDE 107 96 - 108 mmol/L [facility] CO2 24 21 - 35 mmol/L [facility] BUN 6 6 - 19 mg/dL [facility] CREATININE 0.70 0.5 - 1.5 mg/dL [facility] GLUCOSE 77 70 - 99 mg/dL [facility] ALBUMIN 4.2 3.9 - 4.8 g/dL [facility] TOTAL PROTEIN 7.3 6.5 - 8.0 g/dL [facility] CALCIUM 9.4 8.4 - 10.3 mg/dL [facility] ALKALINE PHOSPHATASE 75 39 - 117 U/L [facility] TOTAL BILIRUBIN 0.4 0.0 - 1.2 mg/dL [facility] AST 26 0 - 37 U/L [facility] ALT 9 0 - 40 U/L [facility] GLOBULIN 3.1 1 - 4.8 g/dL [facility] EGFR 116 >59 mL/min/1.7 3m2 [facility] Comment:Estimated glomerular filtration rate calculated using the CKD-EPI refit equation. ANION GAP 14 10 - 20 mmol/L [facility] Blood 08/06/2025 2:39 PM EDT 08/06/2025 2:51 PM EDT us Shobha Dozier MD LAB BLOOD BKR ORDERABLES Final Result [address] [address] * TSH with reflex (08/06/2025 2:39 PM EDT) TSH 1.75 0.27 - 4.20 uIU/mL [facility] Blood 08/06/2025 2:39 PM EDT 08/06/2025 2:51 PM EDT us Shobha Dozier MD LAB BLOOD BKR ORDERABLES Final Result [address] [address] * Double stranded DNA antibodies (08/06/2025 2:39 PM EDT) ANTI DSDNA ANTIBODY POSITIVE AT 1:80 [facility] Comment: Performing Pathologist, Delroy Dior M.D., Ph.D. [phone] Normal: Negative at 1:10 Anti-gila river DNA Antibodies detected on Crithidia luciliae substrate. [...] other rheumatic diseases or in drug-induced SLE. Ezhz-yhvavn-paromkjs DNA antibodies are usually detected in SLE patients with active disease, but not in those with spontaneous or induced remissions. Sequential testing of serum for the presence and titer of this antibody provides a cost-effective approach to following disease activity in many patients with SLE. Blood 08/06/2025 2:39 PM EDT 08/06/2025 2:50 PM EDT us Shobha Dozier MD LAB BLOOD BKR ORDERABLES Final Result [address] [address] * Sedimentation rate (ESR) (08/06/2025 2:39 PM EDT) ESR 9 0 - 20 mm/h [facility] Blood 08/06/2025 2:39 PM EDT 08/06/2025 2:51 PM EDT us Shobha Dozier MD LAB BLOOD BKR ORDERABLES Final Result [facility] [address] [place] [address] * (ABNORMAL) CBC and differential (08/06/2025 2:39 PM EDT) WBC 2.72(L) 4.00 - 11.00 K/uL [facility] RBC 4.38 4.00 - 5.20 M/uL [facility] HGB 11.9(L) 12.0 - 16.0 g/dL [facility] HCT 38.5 36.0 - 46.0 % [facility] PLT 200 150 - 450 K/uL [facility] MCV 87.9 80.0 - 100.0 fL [facility] MCH 27.2 27.0 - 31.0 pg [facility] MCHC 30.9(L) 32.0 - 36.0 g/dL [facility] RDW 14.9(H) 11.5 - 14.5 % [facility] MPV 11.7 8.4 - 12.0 fL [facility] NRBC 0.00 0.00 /100 WBCs [facility] ABSOLUTE NRBC 0.00 0.00 K/uL [facility] DIFF METHOD Auto [facility] NEUTS 49.3 48.0 - 76.0 % [facility] LYMPHS 39.7 18.0 - 41.0 % [facility] MONOS 9.6 4.0 - 11.0 % [facility] EOS 0.7 0.0 - 5.0 % [facility] BASOS 0.7 0.0 - 1.5 % [facility] Granulocytes, immature (%) 0.0 0.0 - 0.9 % [facility] ABSOLUTE NEUTS 1.34(L) 1.92 - 7.60 K/uL [facility] ABSOLUTE LYMPHS 1.08 0.72 - 4.10 K/uL [facility] ABSOLUTE MONOS 0.26 0.16 - 1.10 K/uL [facility] ABSOLUTE EOS 0.02 0.00 - 0.50 K/uL [facility] ABSOLUTE BASOS 0.02 0.00 - 0.15 K/uL [facility] Granulocytes, immature 0.00 0.00 - 0.09 K/uL [facility] Blood 08/06/2025 2:39 PM EDT 08/06/2025 2:51 PM EDT us Shobha Dozier MD LAB BLOOD BKR ORDERABLES Final Result [facility] [address] [place] [address] * Complement C3 (08/06/2025 2:39 PM EDT) C3 105 81 - 157 mg/dl [facility] Blood 08/06/2025 2:39 PM EDT 08/06/2025 2:50 PM EDT us Shobha Dozier MD LAB BLOOD BKR ORDERABLES Final Result Performing Organization Address City/[facility] Co de Phone Number [address] [address] * Complement C4 (08/06/2025 2:39 PM EDT) C4 20 12 - 39 mg/dL [facility] Blood 08/06/2025 2:39 PM EDT 08/06/2025 2:50 PM EDT us Shobha Dozier MD LAB BLOOD BKR ORDERABLES Final Result Performing Organization Address City/[facility]/ZIP Co de Phone Number [address] [address] * C-Reactive Protein (08/06/2025 2:39 PM EDT) C REACTIVE PROTEIN <3.0 0.0 - 4.0 mg/L [facility] Blood 08/06/2025 2:39 PM EDT 08/06/2025 2:51 PM EDT us Shobha Dozier MD LAB BLOOD BKR ORDERABLES Final Result Performing Organization Address City/State/[facility] Co de Phone Number [address] [address] * CPK (creatine kinase) (08/06/2025 2:39 PM EDT) CREATINE KINASE 133 21 - 215 U/L [facility] Blood 08/06/2025 2:39 PM EDT 08/06/2025 2:51 PM EDT us Shobha Dozier MD LAB BLOOD BKR ORDERABLES Final Result [address] [address] from Last 3 Months Insurance [facility] MEDICARE REPLACEMENT MEDICARE REPLACEMENT MEDICARE REPLACEMENT MEDICARE REPLACEMENT [facility] ONE CARE MEDICARE REPLACEMENT Care Teams Document Review Attorney Relationship Specialty Start Date End Date Fabiana Mercer MD [address] [place] [address] [place] [address] PCP - General Internal Medicine 09/07/23 Additional Source Comments The information contained in this document represents components of the legal health record. It is not the complete legal health record.[facility]
--- OUTSIDE RECORDS SUMMARY | 2025-09-17 17:00 | XMS_ITS | Clinical Summary ---
Author Organization 175 [facility] Address [address] [place] [address] Phone Care Team Providers Care Data Report Analyst Name Role Phone Fabiana Mercer MD Primary Care Provider [phone] Allergies No known active allergies Medications hydroxychloroqu ine (PLAQUENIL) 200 mg tablet Take 2 tablets [...] (one) time each day. 5 Active calcium carbonate-vitam in D 600 mg-10 mcg (400 unit) per tablet Take 1 tablet by mouth 2 (two) times a day. Active butalbital-acet aminophen-caffe ine (FIORICET, ESGIC) 50-325-40 mg per tablet Take 1 tablet by mouth if needed. Active tirzepatide, weight loss, (Zepbound) 15 mg/0.5 mL injectionIndica tions:Over weight Inject 0.5 mL (15 mg total) under the skin every 7 (seven) days. 2 mL 5 5 02/21/20 26 Active Zepbound 15 mg/0.5 mL injection INJECT 0.5ML (15MG) UNDER THE SKIN EVERY 7 DAYS 2 mL 08/24/20 Discontinu ed(Reorder ) Active Problems Problem Noted Date Diagnosed Date Cold sensitivity 08/06/2025 Systemic lupus erythematosus (CMS/HCC V24, CMS/H CC V28) 11/11/2023 Primary osteoarthritis involving multiple joints 11/11/2023 Raynaud's phenomenon without gangrene 11/11/2023 Encounters Date Type Department Care Team Description 08/24/2025 10:45 AM EST Office Visit Bariatric Surgery [address] [address] Patrica Reid MD Over weight (Primary Dx) from Last 3 Months Social History Tobacco Use Types Packs/Day Years Used Date Smoking Tobacco: Never Assessed Comments Unknown Sex and Gender Information Value Date Recorded Sex Assigned at Not on file Legal Sex Female 1:55 AM EST Gender Identity Not on file Sexual Orientation Not on file Last Filed Vital Signs Vital Sign Reading Time Taken Comments Blood Pressure 105/71 08/24/2025 11:01 AM EST Pulse 102 08/24/2025 11:01 AM EST Temperature 36.6 C (97.8 F) 08/24/2025 11:01 AM EST Respiratory Rate - - Oxygen Saturation - - Inhaled Oxygen Concentration - - Weight 58.5 kg (129 lb) 08/24/2025 11:01 AM EST Height 165.1 cm (5' 5 ) 08/24/2025 11:01 AM EST Body Mass Index 21.47 08/24/2025 11:01 AM EST Plan of Treatment Upcoming Encounters Date Type Department Care Team (Late st Contact Info) Description 02/28/2026 2:45 PM EDT Office Visit Bariatric Surgery [facility] [address] [address] Patrica Reid MD [address] [place] [phone] Health Maintenance Due Date Last Done [...] Influencers of Health Screening 11/21/2024 COVID-19 Vaccine (3 - season) 2025 08/01/2021, 06/17/2021 Influenza Vaccine (#1) 2025 RSV Immunization Adult Patients (1 - 1-dose 75+ series) 2065 HIB Vaccines Completed 03/18/1992, 03/19, 1990 IPV [...] patient's age to complete this topic Insurance [facility] MEDICARE Member Subscriber Plan / Payer (Ef fective 2019-Present) Name:SHAHRZAD CONN Relation to Subscriber:Self Name:Shahrzad Conn Payer ID:[id number] Group ID:[id number] Type:Not on file Address: [address] [place] [phone] Care Teams Data Report Analyst Relationship Specialty Start Date End Date Fabiana Mercer MD [address] [facility] [address] PCP - General Internal Medicine 11/21/24
== END 2025-09-17 13:40 | disposition home or self-care (01) ==
LOC: HO.HSM 13:26
PROVIDERS: PCP Internal Medicine; Visit Provider Registered Nurse
DX: G43.009 Migraine without aura, not intractable, without status migrainosus (principal)
CPT/HCPCS: 99214

== ENCOUNTER → 2025-09-17 13:25 | Outpatient (BNVA) | payer OTHER, SELFPAY | PROVIDERS: PCP Internal Medicine; Visit Provider Registered Nurse | DX: G43.009 Migraine without aura, not intractable, without status migrainosus (principal); Z79.899 Other long term (current) drug therapy | CPT/HCPCS: 99212 ==

== ENCOUNTER 2025-09-19 15:43 | Outpatient (AMB) | payer OTHER, SELFPAY ==
--- OUTSIDE RECORDS SUMMARY | 2025-09-19 18:36 | XMS_ITS | Clinical Summary ---
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 Carefully continue Plaquenil (hydroxychloroquine) 200 mg [...] next visit in 4 months-standing orders in [facility]. Carefully continue Plaquenil (hydroxychloroquine) 200 mg [...] Type Department Care Team Description 08/21/2025 Refill [facility] Rheumatology [address] [place] [address] [place] [address] Shobha Dozier MD Medication Refill 08/06/2025 2:37 PM EDT - 08/06/2025 11:59 PM EDT Hospital Encounter [facility] [address] [place] [address] Shobha Dozier MD Discharge Disposition: Home or Self Care 08/06/2025 2:00 PM EDT Office Visit [facility] Rheumatology [address] [place] [address] [place] [address] Shobha Dozier MD Systemic lupus erythematosus, unspecified SLE type, unspecified organ involvement status (Primary Dx); Primary osteoarthritis involving multiple joints; Raynaud's phenomenon without gangrene; Long-term use of Plaquenil; On selective serotonin reuptake inhibitor (SSRI) therapy; 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; Primary insomnia; [...] 12/10/2025 10:30 AM EST Office Visit [facility] [place] [address] Shobha Dozier MD [address] [facility], [address] [place] [address] Health Maintenance Due Date Last Done Comments [...] organ involvement status Long-term use of Plaquenil correction 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 C-REACTIVE PROTEIN (CRP) Routine 08/06/2025 2:39 PM EDT Systemic lupus erythematosus, unspecified SLE type, unspecified organ involvement status Long-term use of Plaquenil 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 SEDIMENTATION RATE (ESR) Routine 08/06/2025 2:39 PM EDT Systemic lupus erythematosus, unspecified SLE type, unspecified organ involvement status Long-term use of Plaquenil correction 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 CBC AND DIFFERENTIAL Routine 08/06/2025 2:39 PM EDT Systemic lupus erythematosus, unspecified SLE type, unspecified organ involvement status Long-term use of Plaquenil 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 COMPLEMENT C3 Routine 08/06/2025 2:39 PM EDT Systemic lupus erythematosus, unspecified SLE type, unspecified organ involvement status Long-term use of Plaquenil 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 COMPLEMENT C4 Routine 08/06/2025 2:39 PM EDT Systemic lupus erythematosus, unspecified SLE type, unspecified organ involvement status Long-term use of Plaquenil correction 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 CREATINE KINASE (CK) Routine 08/06/2025 2:39 PM EDT Systemic lupus erythematosus, unspecified SLE type, unspecified organ involvement status Long-term use of Plaquenil correction 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 DOUBLE STRANDED DNA ANTIBODIES Routine 08/06/2025 2:39 PM EDT Systemic lupus erythematosus, unspecified SLE type, unspecified organ involvement status Long-term use of Plaquenil 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 TOTAL PROTEIN CREATININE RATIO, RANDOM URINE Routine 08/06/2025 2:39 PM EDT Systemic lupus erythematosus, unspecified SLE type, unspecified organ involvement status Long-term use of Plaquenil 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 from Last 3 Months Results * TOTAL PROTEIN CREATININE RATIO, RANDOM URINE (08/06/2025 2:39 PM EDT) URINE TOTAL PROTEIN 20.0 mg/dL [facility] URINE CREATININE 265 mg/dL [facility] URINE TP CRE RATIO 0.08 0 - 0.19 [facility] Urine (Urine) 08/06/2025 2:3 9 PM EDT 08/06/2025 2:49 PM EDT us Shobha Dozier MD LAB URINE ORDERABLES Fin al Result [facility] [address] [place] [address] * Comprehensive metabolic panel (08/06/2025 2:39 PM EDT) SODIUM 141 133 - 146 mmol/L [facility] POTASSIUM 4.1 3.3 - 5.1 mmol/L [facility] CHLORIDE 107 96 - 108 mmol/L [facility] CO2 24 21 - 35 mmol/L [facility] BUN 6 6 - 19 mg/dL [facility] CREATININE 0.70 0.5 - 1.5 mg/dL [facility] GLUCOSE 77 70 - 99 mg/dL [facility] ALBUMIN 4.2 3.9 - 4.8 g/dL [facility] TOTAL PROTEIN 7.3 6.5 - 8.0 g/dL [facility] CALCIUM 9.4 8.4 - 10.3 mg/dL [facility] ALKALINE PHOSPHATASE 75 39 - 117 U/L [facility] TOTAL BILIRUBIN 0.4 0.0 - 1.2 mg/dL [facility] AST 26 0 - 37 U/L [facility] ALT 9 0 - 40 U/L [facility] GLOBULIN 3.1 1 - 4.8 g/dL [facility] EGFR 116 >59 mL/min/1.7 3m2 [facility] Comment:Estimated glomerular filtration rate calculated using the CKD-EPI refit equation. ANION GAP 14 10 - 20 mmol/L [facility] Blood 08/06/2025 2:39 PM EDT 08/06/2025 2:51 PM EDT us Shobha Dozier MD LAB BLOOD BKR ORDERABLES Final Result [address] [address] * TSH with reflex (08/06/2025 2:39 PM EDT) TSH 1.75 0.27 - 4.20 uIU/mL [facility] Blood 08/06/2025 2:39 PM EDT 08/06/2025 2:51 PM EDT us Shobha Dozier MD LAB BLOOD BKR ORDERABLES Final Result [address] [address] * Double stranded DNA antibodies (08/06/2025 2:39 PM EDT) ANTI DSDNA ANTIBODY POSITIVE AT 1:80 [facility] Comment: Performing Pathologist, Delroy Dior M.D., Ph.D. [id number] Normal: Negative at 1:10 Anti-wiyot DNA Antibodies detected on Crithidia luciliae substrate. [...] other rheumatic diseases or in drug-induced SLE. Gesg-mmtadp-yddjisfc DNA antibodies are usually detected in SLE [...] MD LAB BLOOD BKR ORDERABLES Final Result [address] [address] * Sedimentation rate (ESR) (08/06/2025 2:39 PM EDT) ESR 9 0 - 20 mm/h [facility] Blood 08/06/2025 2:39 PM EDT 08/06/2025 2:51 PM EDT us Shobha Dozier MD LAB BLOOD BKR ORDERABLES Final Result [facility] [address] [place] [address] * (ABNORMAL) CBC and differential (08/06/2025 2:39 PM EDT) WBC 2.72(L) 4.00 - 11.00 K/uL [facility] RBC 4.38 4.00 - 5.20 M/uL [facility] HGB 11.9(L) 12.0 - 16.0 g/dL [facility] HCT 38.5 36.0 - 46.0 % [facility] PLT 200 150 - 450 K/uL [facility] MCV 87.9 80.0 - 100.0 fL [facility] MCH 27.2 27.0 - 31.0 pg [facility] MCHC 30.9(L) 32.0 - 36.0 g/dL [facility] RDW 14.9(H) 11.5 - 14.5 % [facility] MPV 11.7 8.4 - 12.0 fL [facility] NRBC 0.00 0.00 /100 WBCs [facility] ABSOLUTE NRBC 0.00 0.00 K/uL [facility] DIFF METHOD Auto [facility] NEUTS 49.3 48.0 - 76.0 % [facility] LYMPHS 39.7 18.0 - 41.0 % [facility] MONOS 9.6 4.0 - 11.0 % [facility] EOS 0.7 0.0 - 5.0 % [facility] BASOS 0.7 0.0 - 1.5 % [facility] Granulocytes, immature (%) 0.0 0.0 - 0.9 % [facility] ABSOLUTE NEUTS 1.34(L) 1.92 - 7.60 K/uL [facility] ABSOLUTE LYMPHS 1.08 0.72 - 4.10 K/uL [facility] ABSOLUTE MONOS 0.26 0.16 - 1.10 K/uL [facility] ABSOLUTE EOS 0.02 0.00 - 0.50 K/uL [facility] ABSOLUTE BASOS 0.02 0.00 - 0.15 K/uL [facility] Granulocytes, immature 0.00 0.00 - 0.09 K/uL [facility] Blood 08/06/2025 2:39 PM EDT 08/06/2025 2:51 PM EDT us Shobha Dozier MD LAB BLOOD BKR ORDERABLES Final Result [facility] [address] [place] [address] * Complement C3 (08/06/2025 2:39 PM EDT) C3 105 81 - 157 mg/dl [facility] Blood 08/06/2025 2:39 PM EDT 08/06/2025 2:50 PM EDT us Shobha Dozier MD LAB BLOOD BKR ORDERABLES Final Result Performing Organization Address City/[facility] Co de Phone Number [address] [address] * Complement C4 (08/06/2025 2:39 PM EDT) C4 20 12 - 39 mg/dL [facility] Blood 08/06/2025 2:39 PM EDT 08/06/2025 2:50 PM EDT us Shobha Dozier MD LAB BLOOD BKR ORDERABLES Final Result Performing Organization Address City/[facility]/ZIP Co de Phone Number [address] [address] * C-Reactive Protein (08/06/2025 2:39 PM EDT) C REACTIVE PROTEIN <3.0 0.0 - 4.0 mg/L [facility] Blood 08/06/2025 2:39 PM EDT 08/06/2025 2:51 PM EDT us Shobha Dozier MD LAB BLOOD BKR ORDERABLES Final Result Performing Organization Address City/State/[facility] Co de Phone Number [address] [address] * CPK (creatine kinase) (08/06/2025 2:39 PM EDT) CREATINE KINASE 133 21 - 215 U/L [facility] Blood 08/06/2025 2:39 PM EDT 08/06/2025 2:51 PM EDT us Shobha Dozier MD LAB BLOOD BKR ORDERABLES Final Result [address] [address] from Last 3 Months Insurance [facility] MEDICARE REPLACEMENT MEDICARE REPLACEMENT MEDICARE REPLACEMENT MEDICARE REPLACEMENT [facility] ONE CARE MEDICARE REPLACEMENT Care Teams School Library Media Specialist Relationship Specialty Start Date End Date Fabiana Mercer MD [address] [place] [address] [place] [address] PCP - General Internal Medicine 09/07/23 Additional Source Comments The information contained in this document represents components of the legal health record. It is not the complete legal health record.[facility]
--- OUTSIDE RECORDS SUMMARY | 2025-09-19 18:36 | XMS_ITS | Clinical Summary ---
Author Organization 175 [facility] Address [address] [place] [address] Phone Care Team Providers Care Embedded Software Manager Name Role Phone Fabiana Mercer MD Primary Care Provider [phone] Allergies No known active allergies Medications hydroxychloroqu [...] 10:45 AM EST Office Visit Bariatric Surgery [address] [phone] Patrica Reid MD Over weight [...] 2:45 PM EDT Office Visit Bariatric Surgery [facility] [address] [address] Patrica Reid MD [address] [place] [phone] Health Maintenance Due Date Last Done [...] patient's age to complete this topic Insurance [facility] MEDICARE Member Subscriber Plan / Payer (Ef fective 2019-Present) Name:SHAHRZAD CONN Relation to Subscriber:Self Name:Shahrzad Conn Payer ID:[id number] Group ID:[id number] Type:Not on file Address: [address] [place] [address] Care Teams Embedded Software Manager Relationship Specialty Start Date End Date Fabiana Mercer MD [address] [facility] [address] PCP - General Internal Medicine 11/21/24
--- OUTSIDE RECORDS SUMMARY | 2025-09-19 18:36 | XMS_ITS | Clinical Summary ---
Author Organization [facility] Address [address] [place] [phone] Phone Care Team Providers Care Visual Developer Name Role Phone Unavailable Primary Care Provider [...]
--- OUTSIDE RECORDS SUMMARY | 2025-09-19 18:36 | XMS_ITS | Encounter Summary ---
Author Organization [facility] Address [address] [place] [address] Phone Care Team Providers Care Vp Customer Development Name Role Phone Unavailable Primary Care Provider Unavailabl e Encounter Details Date Type Department Care Team (Late st Contact Info) Description 08/19/2017 Conversion Encounter [facility] - [address] [address] Social History Tobacco Use Types Packs/Day Years [...]
== END 2025-09-19 15:44 | disposition home or self-care (01) ==
LOC: HO.HMGAL 15:43
PROVIDERS: PCP Internal Medicine; Visit Provider Registered Nurse Emergency
DX: J30.89 Other allergic rhinitis (principal)
CPT/HCPCS: 95117; 95165